=== PATIENT | male | born 1990 | race Caucasian/White ===

== ENCOUNTER 2021-08-20 13:10 | Inpatient (IN) ==
[2021-08-20 13:54] LABS: Basophils # (auto) 0.05 K/uL (0-0.2); Basophils % (auto) 0.5 %; Eosinophils # (auto) 0.13 K/uL (0-0.5); Eosinophils % (auto) 1.2 %; Hematocrit (blood only) 44.5 % (42-52); Hemoglobin 15.5 g/dL (14.0-18.0); Immature Granulocytes # (auto) 0.03 K/uL (0.00-0.02); Immature Granulocytes % (auto) 0.3 %; Lymphocytes # (auto) 2.05 K/uL (1.2-3.4); Lymphocytes % (auto) 19.3 %; Mean Corpuscular Hemoglobin 30.6 pg (25-34); Mean Corpuscular Hgb Conc 34.8 g/dL (32-36); Mean Corpuscular Volume 87.8 fL (80-100); Mean Platelet Volume 9.3 fL (7.4-10.4); Monocytes # (auto) 0.79 K/uL (0.11-0.59); Monocytes % (auto) 7.4 %; Neutrophils # (auto) 7.58 K/uL (1.4-6.5); Neutrophils % (auto) 71.3 %; Platelet Count 337 K/uL (130-400); RDW Coefficient of Variation 13.1 % (11.5-14.5); RDW Standard Deviation 41.9 fL (36.4-46.3); Red Blood Count 5.07 M/uL (4.7-6.1); White Blood Count 10.63 K/uL (4.8-10.8)
[2021-08-20 14:13] LABS: BUN Creatinine Ratio 10.8 (10-20); Calcium 9.2 mg/dl (8.5-10.1); Creatinine Clr Calc Pharmacy 131.8 ml/min; Est GFR (African American) 115.7 ml/min; Est GFR (Non-African American) 99.8 ml/min; Potassium 3.4 mmol/L (3.5-5.1)
[2021-08-20 14:23] LABS: Albumin Globulin Ratio 0.8 (0.9-2); Bilirubin,Total 0.5 mg/dl (0.2-1); Globulin 4.8 gm/dl (2.5-4.0); Thyroid Stimulating Hormone 1.04 uIu/ml (0.300-4.500); Total Protein 8.8 gm/dl (6.4-8.2)
[2021-08-20 14:25] LABS: Acetaminophen < 2 ug/ml (10-30); Salicylate 2.2 mg/dl (2.8-20)
[2021-08-20 14:39] LABS: Appearance Urine Clear (Clear); Bacteria Urine Automated Negative (Negative); Bilirubin Urine Negative (Negative); Blood Urine Negative (Negative); Color Urine Yellow; Epithelial Cell Urine Auto >30 /lpf (0-5); Glucose Urine UA Negative (Negative); Ketones Urine Negative (Negative); Leukocyte Esterase Urine Trace (Negative); Nitrite Urine Negative (Negative); Protein Urine 1+ (Negative); RBC Urine Automated 0-4 /hpf (0-4); Specific Gravity Urine 1.022 (1.000-1.030); Urobilinogen Urine Negative (Negative)
[2021-08-20 14:49] LABS: Amphetamines+Metham, Urine Pos (Neg); Barbiturates, Urine Neg (Neg); Benzodiazepine, Urine Neg (Neg); Cocaine, Urine Neg (Neg); MDMA (Ecstacy), Urine Pos (Neg); Methadone, Urine Neg (Neg); Opiate, Urine Neg (Neg); Phencyclidine, Urine Neg (Neg); Sperm Urine Present (None Prsent)
--- NOTE | 2021-08-20 16:16 | Emergency Department Note ---
Impression & Plan Mood disorder ED Provider Note INFORMANT: Patient and significant other ED PROVIDER(S): Joaquín Mohr MD CHIEF COMPLAINT: Mental health evaluation PLAN: Disposition: Admitted to three . Condition: Good Outpatient prescription management: none Referral: None MEDICAL DECISION MAKING: Patient presented to the emergency room because of thoughts of self-harm. He was requesting treatment. He was voluntary for inpatient treatment. His physical examination and medical screening did not reveal any significant findings. Patient was evaluated by the ER psychiatric business case analyst. Referrals were made. Patient was evaluated by [facility]. The patient was accepted for inpatient treatment. Triage Nursing notes reviewed and agree them. Vital Signs: reviewed and remarkable for no significant abnormalities Differential diagnosis: Mood disorder, infection, hypoglycemia, electrolyte abnormalities, cardiac sources, intracerebral event, toxicologic, trauma, neurologic, as well as other pathologies. Diagnostics interpreted by me: ECG: Deferred Cardiac Monitoring: Deferred Imaging studies: Deferred HPI: The patient is a 30year old male who presents to the Emergency Room with complaints of mental health evaluation. Patient notes he feels suicidal. This started last few months and is escalating over the last couple weeks. The patient also notes the following associated symptoms, feeling depressed. Patient states he previously had issues with alcohol but stopped drinking. He started to use meth. This caused him to have problems with his mood as well as the typical social problems. He ended up incarcerated several times. Patient states that he was clean but then had a relapse. This is causing him to be frustrated. He feels very depressed. He has thoughts of hurting himself. The patient has found no relieving factors. Current pain is rated as 0/10. Denies any recent illness. Pt denies LOC, headache, fevers, chills, diaphoresis, visual changes, neck pain, chest pain, breathing difficulties, nausea, vomiting, abdominal pain, back pain, melena, hematochezia, urinary symptoms, numbness, weakness, lymphadenopathy, rash, or other complaints. ROS: See above HPI for pertinent positives & negatives. A total of 10 systems reviewed and were otherwise negative. PAST MEDICAL HISTORY:See Below , methamphetamine abuse PAST SURGICAL HISTORY:See Below, FAMILY HISTORY:See Below SOCIAL HISTORY:See Below, unemployed HOME MEDICATIONS:See Below ALLERGIES:See Below VITALS:See Below PHYSICAL EXAMINATION: GENERAL: Awake, alert, depressed-appearing, in no distress HENT: Normocephalic, atraumatic except for an old appearing bruise under the left eye. Oropharynx unremarkable. EYES: Normal conjunctiva. Sclera non-icteric. NECK: Inspection normal. Non-tender. Supple. No nuchal rigidity. FROM. No masses. RESPIRATORY: Clear to auscultation. No wheezes. No rales. Normal respiratory effort. CARDIAC: Normal rate. Normal rhythm. No murmurs. No rubs. Extremities warm and well perfused. Pulses equal. No JVD. GI: Soft, non-distended. No tenderness to palpation. No rebound or guarding. No masses. RECTAL: Deferred. MUSCULOSKELETAL: Atraumatic. Chest examination reveals no tenderness. There is a old appearing bruise to the left upper pectoralis region. The back is symmetrical on inspection without obvious abnormality. There is no CVA tenderness to palpation. No joint edema. LOWER EXTREMITIES: Calves are equal size bilaterally and non-tender. No edema. No discoloration. NEURO: Normal sensorium. No sensory or motor deficits noted. SKIN: Multiple tattoos. No rash or jaundice noted. PSYCH: Depressed mood and flat affect. Suicidal ideation. No homicidal ideation. No hallucinations. Joaquín Mohr MD Past Med/Surg History Medical History Drug use Drug use Surgical History No pertinent past surgical history Social History Smoking Status: Current every day smoker Feels Safe at Home: Yes Allergies Allergies Allergy/AdvReac Type Severity Reaction Status Date / Time No Known Allergies Allergy Unverified 10/31/19 02:15 Home Meds Home Medications Medication Instructions Recorded Confirmed No Known Home Medications 10/31/19 08/20/21 Results & Data (ED) Vital Signs Vital Signs - 24 hr 08/20/21 13:17 08/20/21 15:53 Temperature 37.5 C 37.4 C Temperature Source Temporal Artery Scan Oral Pulse Rate 107 H Pulse Rate [Finger] 97 H Pulse Rhythm [Finger] Regular Pulse Strength [Finger] Normal Respiratory Rate 17 18 Respiratory Effort / Characteristics Non-Labored Respiratory Depth Normal Respiratory Pattern Regular Blood Pressure 163/95 H Blood Pressure [Right Arm] 147/89 H Blood Pressure Mean 117 Blood Pressure Mean [Right Arm] 108 Blood Pressure Position [Right Arm] Sitting Pulse Oximetry 99 100 Oxygen Delivery Method Room Air Room Air Sepsis Recent Fever Within 48 Hours No Sepsis New/Unexplained Change in Mental Status N/A Sepsis Action Taken by Nursing No Action Required Laboratory Data Result diagrams: 08/20/21 13:45 08/20/21 13:45 Lab Results 08/20/21 08/20/21 08/20/21 Range/Units 13:45 13:45 13:45 WBC 10.63 (4.8-10.8) K/uL RBC 5.07 (4.7-6.1) M/uL Hgb 15.5 (14.0-18.0) g/dL Hct 44.5 (42-52) % MCV 87.8 (80-100) fL MCH 30.6 (25-34) pg MCHC 34.8 (32-36) g/dL RDW Std Deviation 41.9 (36.4-46.3) fL RDW Coeff of [place] 13.1 (11.5-14.5) % Plt Count 337 (130-400) K/uL MPV 9.3 (7.4-10.4) fL Immature Gran % (Auto) 0.3 % Neut % (Auto) 71.3 % Lymph % (Auto) 19.3 % [place] % (Auto) 7.4 % Eos % (Auto) 1.2 % Baso % (Auto) 0.5 % Neut # (Auto) 7.58 H (1.4-6.5) K/uL Lymph # (Auto) 2.05 (1.2-3.4) K/uL [place] # (Auto) 0.79 H (0.11-0.59) K/uL Eos # (Auto) 0.13 (0-0.5) K/uL Baso # (Auto) 0.05 (0-0.2) K/uL Immature Gran # (Auto) 0.03 H (0.00-0.02) K/uL Sodium 141 (136-145) mmol/L Potassium 3.4 L (3.5-5.1) mmol/L Chloride 110 H (98-107) mmol/L Carbon Dioxide 23 (21-32) mmol/L Anion Gap 8.0 (3-11) BUN 11 (7-18) mg/dl Creatinine 1.00 (0.6-1.4) mg/dl Est Cr Clr Drug Dosing 131.8 ml/min Est GFR ( Amer) 115.7 ml/min Est GFR (Non-Af Amer) 99.8 ml/min BUN/Creatinine Ratio 10.8 (10-20) Glucose 118 H (70-99) mg/dl Calcium 9.2 (8.5-10.1) mg/dl Total Bilirubin 0.5 (0.2-1) mg/dl AST 13 L (15-37) U/L ALT 33 (12-78) U/L Alkaline Phosphatase 74 (45-117) U/L Total Protein 8.8 H (6.4-8.2) gm/dl Albumin 4.0 (3.4-5.0) gm/dl Globulin 4.8 H (2.5-4.0) gm/dl Albumin/Globulin Ratio 0.8 L (0.9-2) TSH 1.040 (0.300-4.500) uIu/ml Urine Color Urine Appearance (Clear) Urine pH (4.5-7.5) Ur Specific [place] (1.000-1.030) Urine Protein (Negative) Urine Glucose (UA) (Negative) Urine Ketones (Negative) Urine Blood (Negative) Urine Nitrite (Negative) Urine Bilirubin (Negative) Urine Urobilinogen (Negative) Ur Leukocyte Esterase (Negative) Urine WBC (Auto) (0-5) /hpf Urine RBC (Auto) (0-4) /hpf U Hyaline Cast (Auto) (0-5) /lpf U Epithel Cells (Auto) (0-5) /lpf Urine Bacteria (Auto) (Negative) Ur Renal Epithelial Cell Urine Sperm (None Prsent) Nasal Screen MRSA (PCR) (Negative) Salicylates 2.2 L (2.8-20) mg/dl Urine Opiates Screen (Neg) Ur Methadone, Qual (Neg) Acetaminophen < 2 L (10-30) ug/ml Urine Barbiturates (Neg) Ur Phencyclidine (PCP) (Neg) U Amphetamin/Meth Scrn (Neg) MDMA (Ecstasy) Screen (Neg) U Benzodiazepines Scrn (Neg) Ur Cocaine Metabolite (Neg) U Marijuana (THC) Screen (Neg) Ethyl Alcohol mg/dL (0-3) mg/dl SARS-CoV-2, RNA, NAAT (NEGATIVE) 08/20/21 08/20/21 08/20/21 Range/Units 13:45 14:14 14:14 WBC (4.8-10.8) K/uL RBC (4.7-6.1) M/uL Hgb (14.0-18.0) g/dL Hct (42-52) % MCV (80-100) fL MCH (25-34) pg MCHC (32-36) g/dL RDW Std Deviation (36.4-46.3) fL RDW Coeff of [place] (11.5-14.5) % Plt Count (130-400) K/uL MPV (7.4-10.4) fL Immature Gran % (Auto) % Neut % (Auto) % Lymph % (Auto) % [place] % (Auto) % Eos % (Auto) % Baso % (Auto) % Neut # (Auto) (1.4-6.5) K/uL Lymph # (Auto) (1.2-3.4) K/uL [place] # (Auto) (0.11-0.59) K/uL Eos # (Auto) (0-0.5) K/uL Baso # (Auto) (0-0.2) K/uL Immature Gran # (Auto) (0.00-0.02) K/uL Sodium (136-145) mmol/L Potassium (3.5-5.1) mmol/L Chloride (98-107) mmol/L Carbon Dioxide (21-32) mmol/L Anion Gap (3-11) BUN (7-18) mg/dl Creatinine (0.6-1.4) mg/dl Est Cr Clr Drug Dosing ml/min Est GFR ( Amer) ml/min Est GFR (Non-Af Amer) ml/min BUN/Creatinine Ratio (10-20) Glucose (70-99) mg/dl Calcium (8.5-10.1) mg/dl Total Bilirubin (0.2-1) mg/dl AST (15-37) U/L ALT (12-78) U/L Alkaline Phosphatase (45-117) U/L Total Protein (6.4-8.2) gm/dl Albumin (3.4-5.0) gm/dl Globulin (2.5-4.0) gm/dl Albumin/Globulin Ratio (0.9-2) TSH (0.300-4.500) uIu/ml Urine Color Urine Appearance (Clear) Urine pH (4.5-7.5) Ur Specific [place] (1.000-1.030) Urine Protein (Negative) Urine Glucose (UA) (Negative) Urine Ketones (Negative) Urine Blood (Negative) Urine Nitrite (Negative) Urine Bilirubin (Negative) Urine Urobilinogen (Negative) Ur Leukocyte Esterase (Negative) Urine WBC (Auto) (0-5) /hpf Urine RBC (Auto) (0-4) /hpf U Hyaline Cast (Auto) (0-5) /lpf U Epithel Cells (Auto) (0-5) /lpf Urine Bacteria (Auto) (Negative) Ur Renal Epithelial Cell Urine Sperm (None Prsent) Nasal Screen MRSA (PCR) (Negative) Salicylates (2.8-20) mg/dl Urine Opiates Screen Neg (Neg) Ur Methadone, Qual Neg (Neg) Acetaminophen (10-30) ug/ml Urine Barbiturates Neg (Neg) Ur Phencyclidine (PCP) Neg (Neg) U Amphetamin/Meth Scrn Pos H (Neg) MDMA (Ecstasy) Screen Pos H (Neg) U Benzodiazepines Scrn Neg (Neg) Ur Cocaine Metabolite Neg (Neg) U Marijuana (THC) Screen Neg (Neg) Ethyl Alcohol mg/dL < 3.0 (0-3) mg/dl SARS-CoV-2, RNA, NAAT NEGATIVE (NEGATIVE) 08/20/21 08/20/21 Range/Units 14:14 16:10 WBC (4.8-10.8) K/uL RBC (4.7-6.1) M/uL Hgb (14.0-18.0) g/dL Hct (42-52) % MCV (80-100) fL MCH (25-34) pg MCHC (32-36) g/dL RDW Std Deviation (36.4-46.3) fL RDW Coeff of [place] (11.5-14.5) % Plt Count (130-400) K/uL MPV (7.4-10.4) fL Immature Gran % (Auto) % Neut % (Auto) % Lymph % (Auto) % [place] % (Auto) % Eos % (Auto) % Baso % (Auto) % Neut # (Auto) (1.4-6.5) K/uL Lymph # (Auto) (1.2-3.4) K/uL [place] # (Auto) (0.11-0.59) K/uL Eos # (Auto) (0-0.5) K/uL Baso # (Auto) (0-0.2) K/uL Immature Gran # (Auto) (0.00-0.02) K/uL Sodium (136-145) mmol/L Potassium (3.5-5.1) mmol/L Chloride (98-107) mmol/L Carbon Dioxide (21-32) mmol/L Anion Gap (3-11) BUN (7-18) mg/dl Creatinine (0.6-1.4) mg/dl Est Cr Clr Drug Dosing ml/min Est GFR ( Amer) ml/min Est GFR (Non-Af Amer) ml/min BUN/Creatinine Ratio (10-20) Glucose (70-99) mg/dl Calcium (8.5-10.1) mg/dl Total Bilirubin (0.2-1) mg/dl AST (15-37) U/L ALT (12-78) U/L Alkaline Phosphatase (45-117) U/L Total Protein (6.4-8.2) gm/dl Albumin (3.4-5.0) gm/dl Globulin (2.5-4.0) gm/dl Albumin/Globulin Ratio (0.9-2) TSH (0.300-4.500) uIu/ml Urine Color Yellow Urine Appearance Clear (Clear) Urine pH 5.0 (4.5-7.5) Ur Specific [place] 1.022 (1.000-1.030) Urine Protein 1+ H (Negative) Urine Glucose (UA) Negative (Negative) Urine Ketones Negative (Negative) Urine Blood Negative (Negative) Urine Nitrite Negative (Negative) Urine Bilirubin Negative (Negative) Urine Urobilinogen Negative (Negative) Ur Leukocyte Esterase Trace H (Negative) Urine WBC (Auto) 5-10 H (0-5) /hpf Urine RBC (Auto) 0-4 (0-4) /hpf U Hyaline Cast (Auto) 5-10 H (0-5) /lpf U Epithel Cells (Auto) >30 H (0-5) /lpf Urine Bacteria (Auto) Negative (Negative) Ur Renal Epithelial Cell Not Reportable Urine Sperm Present A (None Prsent) Nasal Screen MRSA (PCR) Negative (Negative) Salicylates (2.8-20) mg/dl Urine Opiates Screen (Neg) Ur Methadone, Qual (Neg) Acetaminophen (10-30) ug/ml Urine Barbiturates (Neg) Ur Phencyclidine (PCP) (Neg) U Amphetamin/Meth Scrn (Neg) MDMA (Ecstasy) Screen (Neg) U Benzodiazepines Scrn (Neg) Ur Cocaine Metabolite (Neg) U Marijuana (THC) Screen (Neg) Ethyl Alcohol mg/dL (0-3) mg/dl SARS-CoV-2, RNA, NAAT (NEGATIVE) Administered Medications Discontinued Medications Nicotine (Nicotine 14 Mg/24 Hr Patch) 14 mg TD NOW STA Stop: 08/20/21 16:50 Last Admin: 08/20/21 17:16 Dose: 14 mg Documented by: [id number] Discharge Plan Visit Data Chief Complaint: Mental Health Evaluation Stated Complaint: SUICIDAL THOUGHTS/TALKING OF KILLING HIMSELF ED Provider: Joaquín Mohr Discharge Problem: Mood disorder Patient Disposition: Admitted As Inpatient Discharge Instructions Interventions: ED Discharge Assessment Last Done: 08/20/21 18:31 Forms Stand Alone Forms: [facility] [employer], Suicide Prevention Resources Prescriptions Prescriptions: No Action No Known Home Medications RF: 0 Referrals Referrals: PCP,NO [Primary Care Provider] -
[2021-08-20] MEDS ORDERED: NICOTINE 14 MG/24 HR PATCH TD STA (16:49)
[2021-08-20] MEDS ORDERED: hydrOXYzine HCl 25 MG TAB PO PRN ×2 (18:14)
[2021-08-20] MEDS ORDERED: ACETAMINOPHEN 325 MG TAB PO PRN (18:14)
[2021-08-20] MEDS ORDERED: SODIUM CHLORIDE 0.65% NA SOLN 45 ML (OCEAN) PRN (18:14)
[2021-08-20] MEDS ORDERED: BISMUTH SUBSALICYLATE LIQD 236 ML PO PRN (18:14)
[2021-08-20] MEDS ORDERED: NICOTINE POLACRILEX 2 MG GUM MT PRN (18:14)
[2021-08-20] MEDS ORDERED: ALUMINUM/MAGNESIUM SUSP 30 ML UDC PO PRN (18:14)
[2021-08-20] MEDS ORDERED: MAGNESIUM HYDROXIDE SUSP 30 ML UDC PO PRN (18:14)
[2021-08-20] MEDS ORDERED: FLUARIX QUADRIVALENT 0.5 ML SYR IM ONE (20:33)
[2021-08-21] MEDS: NICOTINE 14 MG/24 HR PATCH TD SCH (09:11)
[2021-08-21] MEDS ORDERED: QUEtiapine FUMARATE 25 MG TABLET PO PRN (11:59)
--- NOTE | 2021-08-21 12:04 | History & Physical ---
Date of Service August 21, 2021 Impression / Recommendations Impression The patient is a 30 year old man with a history of anxiety, depression and polysubstance use who was admitted for worsening depression and SI in the context of multiple psychosocial stressors including recent incarceration, homelessness, relationship conflict, financial strain and relapse of methamphetamine use. Diagnostically consistent with APRIL, social anxiety disorder and unspecified depression likely MDD versus substance-induced depression as well as meeting criteria for methamphetamine use disorder and history of alcohol use disorder in sustained remission. The patient is deemed unstable and requires psychiatric hospitalization for diagnostic clarification, safety and stabilization, medication management and development of further coping skills. Discussed treatment options for mood symptoms as well as his substance use at length. Recommended residential substance use treatment following mood stabilization but is not interested in this level of care at this time. He is willing to participate in a substance use IOP after discharge for his polysubstance use. This will be the biggest modifiable risk factor in reducing his acute and chronic risk of harm to self. Additionally discussed medication options at length including risks, benefits, alteratives. He consented to starting lexapro for anxiety and depression as well as mirtazapine for insomnia. He also consented to use of propranolol BID prn for anxiety and social/performance stress understands risks including but not limited to low BP, dizziness, potential for impacting mood. Also will provide seroquel if necessary for acute agitation if he begins to self-harm via punching counseled on risks including metabolic, TD and goal to avoid use unless absolutely necessary. (1) APRIL (generalized anxiety disorder): (2) Social anxiety disorder: (3) Major depressive disorder, recurrent, unspecified: (4) Methamphetamine use disorder, moderate: (5) Alcohol use disorder, moderate, in sustained remission: 08/21/21: The patient was admitted to the [facility] ([facility] mental health unit) on q15 min checks (behavioral with suicide precautions) for safety. The patient will participate in group, recreational, and milieu therapies and will be offered additional individual and family sessions as clinically appropriate. -Start lexapro 10 mg qd for anxiety and depression -Start mirtazapine 15 mg qhs for depression and insomnia -Start propranolol 10mg BID prn for anxiety -Seroquel 50 mg BID prn po in case of acute agitation Inventory Assets Strengths: motivated for substance use treatment, suportive partner Needs: stable housing, substance use treatment like IOP Risk Factors Assessment substance use remains most significant and modifiable risk factor especially since negative consequences have lead to incarceration and parole violations which are additional risk factors Male: Yes : Yes Do You Have Access To A Gun?: No Health Problems: No Mental Health Diagnoses: Yes Substance Use Disorders: Yes Previous Attempt: Yes Previous Psychiatric Hospitalization: No Hopelessness: No Protective Factors Assessment Employed: No Stable Relationships: Yes Supportive Family: Yes Psychiatric History Identifying Data NARGIS CACERES is a 30-year-old man who is currently homeless, has a history of anxiety, depression and polysubstance use disorder, and was admitted on 08/20/21 18:14 on a 201 voluntary commitment for worsening depression and SI. Chief Complaint "I'm been beating myself up mentally because I had a slip up". History of Present Illness Adrian is a 30 yo man with a history of anxiety, depression and polysubstance use disorder who is currently couch surfing and recently incarcerated due to a parole violation who presents for worsening mood symptoms and SI in the context of multiple psychosocial stressors. Adrian describes low mood with significant anxiety, difficulty sleeping, low self-esteem, worthlessness and decreased energy with intermittent SI over the last few weeks. More recently he's had thoughts of SI with potential plan of overdosing on opioids. He cites multiple stressors, many stemming from recent relapse of methamphetamine use including recently being incarcerated for a parole violation for using methamphetamine in May, homelessness, financial stressors, relationship conflict with his girlfriend, strained relationship with his family, stress from the holidays. He describes a history of substance use, initially with escalating binge use of alcohol (up to 1/5 hard liquor and 12 pack of beer per day) following the of his mother ten years ago. His alcohol use escalated over time and resulted in multiple legal, familial and financial consequences including DUI charges. For the last 3 years he has been in sustained remission from alcohol and no longer has cravings for use. However, he states he substituted "one substance for another" and for the last three years has been using methamphetamine via snorting or smoking as well as intermittent use of suboxone and marijuana. No history of IVDU. He has done residential substance use treatment in the past including most recently May 2021 and he abstained from any use until the day before when he used methamphetamine and suboxone and then three days ago he used methamphetamine again. He is motivated to avoid any further substance use and denies any current cravings. Notes that anxiety is often a major driving factor behind his substance use. Psychiatric ROS notable for past good experience with celexa for anxiety and mood while in [facility], no hx monserrat, no hx psychosis though has experienced AH at times in the past in periods of high anxiety thinking someone is whispering negative comments about him, hx panic attacks in the past (rare), no hx trauma, no hx HI, no hx violence. Past Psychiatric History Previous Psych History: no official diagnoses, was seen by psychiatric provider while in [facility] in the past and prescribed celexa, seroquel and buspirone with some benefit Current Psychiatric Diagnosis: None Outpatient Services: none currently Previous Psych Admissions: none Do You Have Access To A Gun?: No History of Previous Suicide Attempt: Yes (overdose of dentanyl in 2020 that he recognized could lead to possible deat) Past Medication Trials: celexa-found helpful for anxiety, seroquel, buspar, trazodone Additional Notes: hx self-harming via punching self in face or slamming body into yun and burning skin Past Head Trauma/Neuro History History of Concussion/Seizure: No Allergies Allergy/AdvReac Type Severity Reaction Status Date / Time No Known Allergies Allergy Unverified 10/31/19 02:15 Home Medications Medication Instructions Recorded Confirmed Type No Known Home Medications 10/31/19 08/20/21 History Family History Family History of: Depression, Anxiety and Alcoholism/Drug Abuse Alcohol History Hx of Alcohol Use Over the Past 12 Months: No AUDIT Total Score: 0 see HPI Smoking Use Have You Smoked or Used Tobacco Products in the Last 30 Days: Yes tobacco type: cigarettes Smoking Status: Current every day smoker Smoking packs per day: 1 Substance History Hx of Prescription Med Misuse Over the Past 12 Months: No Hx of Over the Counter Med Misuse Over the Past 12 Months: No Hx of Inhalent Misuse Over the Past 12 Months: No Hx of Organic Substance Use Over the Past 12 Months: Yes (Marijuana, last use 07/16) Hx of Illegal Substances/Street Drug Use Over Past 12 Months: Yes (Meth, last use 08/13/21) Problems as a Result of Past Substance Use: Arrested see HPI Personal History Living Arrangements: Homeless Childhood: family in [place], not currently in contact with them Highest Grade Completed: High School Graduate Employment Status: Unemployed Number Of Children: 1 son-age 2, paternal GF has full custody Beliefs That Will Affect Care: None Current Legal Problems: Yes Hx Legal Problems: Yes Hx Traumatic Life Events: No Patient History Medical History (Updated 08/21/21 @ 12:59 by Brooke Gallegos MD) Alcohol use disorder, moderate, in sustained remission Drug use Drug use APRIL (generalized anxiety disorder) Major depressive disorder, recurrent, unspecified Methamphetamine use disorder, moderate Social anxiety disorder Surgical History No pertinent past surgical history Social History Smoking Status: Current every day smoker Preferred Language: Citizen Of [place] Speech Scientist Required: No Beliefs That Will Affect Care: None Feels Safe at Home: Yes Assistive Devices: None Review of Systems Review of Systems: All systems reviewed & are unremarkable except as noted in HPI & below (bruise under left eye from self-harming via punching himself in the face a few days ago ) Physical Exam Psychiatric: Orientation: alert and oriented x 3 Apperance: appropriately dressed and appropriately groomed Eye Contact: good eye contact Motor Behavior: no abnormal motor movements Speech: normal rate/rhythm/volume of speech Affect: + depressed affect Mood: + depressed mood Thought Process: goal directed thought process Thought Content: reality based without delusions Suicidal Thoughts: denies suicidal thoughts Homicidal Thoughts: denies homicidal thoughts Hallucinations: no auditory hallucinations and no visual hallucinations Cognition: attention grossly intact and language grossly intact Estimated Intelligence: consistent with education level Insight: + fair insight Judgement: + fair judgement Vital Signs (Past 24 Hours): Last Vital Signs Temp 36.7 C 08/21/21 06:00 Pulse 96 H 08/21/21 06:31 Resp 16 08/21/21 06:00 BP 121/82 08/21/21 06:31 Pulse Ox 100 08/20/21 15:53 Exam Statement: A physical exam was performed in the ED by Dr. Mohr for the purposes of medical clearance. I accept that physical as correct and adequate for the purposes of the inpatient physical exam. Results & Data ([facility]) Laboratory Results Laboratory Results - last 24 hr 08/20/21 08/20/21 08/20/21 13:45 13:45 13:45 WBC 10.63 RBC 5.07 Hgb 15.5 Hct 44.5 MCV 87.8 MCH 30.6 MCHC 34.8 RDW Std Deviation 41.9 RDW Coeff of [place] 13.1 Plt Count 337 MPV 9.3 Immature Gran % (Auto) 0.3 Neut % (Auto) 71.3 Lymph % (Auto) 19.3 Garrett % (Auto) 7.4 Eos % (Auto) 1.2 Baso % (Auto) 0.5 Neut # (Auto) 7.58 H Lymph # (Auto) 2.05 Garrett # (Auto) 0.79 H Eos # (Auto) 0.13 Baso # (Auto) 0.05 Immature Gran # (Auto) 0.03 H Sodium 141 Potassium 3.4 L Chloride 110 H Carbon Dioxide 23 Anion Gap 8.0 BUN 11 Creatinine 1.00 Est Cr Clr Drug Dosing 131.8 Est GFR ( Amer) 115.7 Est GFR (Non-Af Amer) 99.8 BUN/Creatinine Ratio 10.8 Glucose 118 H Calcium 9.2 Total Bilirubin 0.5 AST 13 L ALT 33 Alkaline Phosphatase 74 Total Protein 8.8 H Albumin 4.0 Globulin 4.8 H Albumin/Globulin Ratio 0.8 L TSH 1.040 Urine Color Urine Appearance Urine pH Ur Specific [place] Urine Protein Urine Glucose (UA) Urine Ketones Urine Blood Urine Nitrite Urine Bilirubin Urine Urobilinogen Ur Leukocyte Esterase Urine WBC (Auto) Urine RBC (Auto) U Hyaline Cast (Auto) U Epithel Cells (Auto) Urine Bacteria (Auto) Ur Renal Epithelial Cell Urine Sperm Nasal Screen MRSA (PCR) Salicylates 2.2 L Urine Opiates Screen Ur Methadone, Qual Acetaminophen < 2 L Urine Barbiturates Ur Phencyclidine (PCP) U Amphetamines Confirm U Amphetamin/Meth Scrn U Methamphetamin Confrm Urine MDEA MDMA (Ecstasy) Screen MDMA Urine MDMA U Benzodiazepines Scrn Ur Cocaine Metabolite U Marijuana (THC) Screen Drug Screen Comment Ethyl Alcohol mg/dL SARS-CoV-2, RNA, NAAT 08/20/21 08/20/21 08/20/21 13:45 14:14 14:14 WBC RBC Hgb Hct MCV MCH MCHC RDW Std Deviation RDW Coeff of [place] Plt Count MPV Immature Gran % (Auto) Neut % (Auto) Lymph % (Auto) Garrett % (Auto) Eos % (Auto) Baso % (Auto) Neut # (Auto) Lymph # (Auto) Garrett # (Auto) Eos # (Auto) Baso # (Auto) Immature Gran # (Auto) Sodium Potassium Chloride Carbon Dioxide Anion Gap BUN Creatinine Est Cr Clr Drug Dosing Est GFR ( Amer) Est GFR (Non-Af Amer) BUN/Creatinine Ratio Glucose Calcium Total Bilirubin AST ALT Alkaline Phosphatase Total Protein Albumin Globulin Albumin/Globulin Ratio TSH Urine Color Urine Appearance Urine pH Ur Specific [place] Urine Protein Urine Glucose (UA) Urine Ketones Urine Blood Urine Nitrite Urine Bilirubin Urine Urobilinogen Ur Leukocyte Esterase Urine WBC (Auto) Urine RBC (Auto) U Hyaline Cast (Auto) U Epithel Cells (Auto) Urine Bacteria (Auto) Ur Renal Epithelial Cell Urine Sperm Nasal Screen MRSA (PCR) Salicylates Urine Opiates Screen Neg Ur Methadone, Qual Neg Acetaminophen Urine Barbiturates Neg Ur Phencyclidine (PCP) Neg U Amphetamines Confirm U Amphetamin/Meth Scrn Pos H U Methamphetamin Confrm Urine MDEA MDMA (Ecstasy) Screen Pos H MDMA Urine MDMA U Benzodiazepines Scrn Neg Ur Cocaine Metabolite Neg U Marijuana (THC) Screen Neg Drug Screen Comment Ethyl Alcohol mg/dL < 3.0 SARS-CoV-2, RNA, NAAT NEGATIVE 08/20/21 08/20/21 08/20/21 14:14 14:14 16:10 WBC RBC Hgb Hct MCV MCH MCHC RDW Std Deviation RDW Coeff of [place] Plt Count MPV Immature Gran % (Auto) Neut % (Auto) Lymph % (Auto) Garrett % (Auto) Eos % (Auto) Baso % (Auto) Neut # (Auto) Lymph # (Auto) Garrett # (Auto) Eos # (Auto) Baso # (Auto) Immature Gran # (Auto) Sodium Potassium Chloride Carbon Dioxide Anion Gap BUN Creatinine Est Cr Clr Drug Dosing Est GFR ( Amer) Est GFR (Non-Af Amer) BUN/Creatinine Ratio Glucose Calcium Total Bilirubin AST ALT Alkaline Phosphatase Total Protein Albumin Globulin Albumin/Globulin Ratio TSH Urine Color Yellow Urine Appearance Clear Urine pH 5.0 Ur Specific [place] 1.022 Urine Protein 1+ H Urine Glucose (UA) Negative Urine Ketones Negative Urine Blood Negative Urine Nitrite Negative Urine Bilirubin Negative Urine Urobilinogen Negative Ur Leukocyte Esterase Trace H Urine WBC (Auto) 5-10 H Urine RBC (Auto) 0-4 U Hyaline Cast (Auto) 5-10 H U Epithel Cells (Auto) >30 H Urine Bacteria (Auto) Negative Ur Renal Epithelial Cell Not Reportable Urine Sperm Present A Nasal Screen MRSA (PCR) Negative Salicylates Urine Opiates Screen Ur Methadone, Qual Acetaminophen Urine Barbiturates Ur Phencyclidine (PCP) U Amphetamines Confirm Pending U Amphetamin/Meth Scrn U Methamphetamin Confrm Pending Urine MDEA Pending MDMA (Ecstasy) Screen MDMA Pending Urine MDMA Pending U Benzodiazepines Scrn Ur Cocaine Metabolite U Marijuana (THC) Screen Drug Screen Comment Pending Ethyl Alcohol mg/dL SARS-CoV-2, RNA, NAAT Current Inpatient Medications Current Inpatient Medications: Current Inpatient Medications Acetaminophen (Acetaminophen 325 Mg Tab) 650 mg PO Q4H PRN PRN Reason: Headache or Minor Fever Stop: 09/19/21 18:13 Al Hydrox/Mg Hydrox/Simethicone (Aluminum/Magnesium Susp 30 Ml Udc) 30 ml PO Q4H PRN PRN Reason: GI Upset Stop: 09/19/21 18:13 Bismuth Subsalicylate (Bismuth Subsalicylate Liqd 236 Ml) 15 ml PO PRN PRN PRN Reason: Loose Stool Stop: 09/19/21 18:13 Escitalopram Oxalate (Escitalopram Oxalate 10 Mg Tab) 10 mg PO QAM [facility] Stop: 09/20/21 11:59 Hydroxyzine HCl (Hydroxyzine Hcl 25 Mg Tab) 50 mg PO HSZ PRN PRN Reason: Insomnia Stop: 09/19/21 18:13 Hydroxyzine HCl (Hydroxyzine Hcl 25 Mg Tab) 25 mg PO Q4H PRN PRN Reason: Anxiety Stop: 09/19/21 18:13 Last Admin: 08/21/21 10:30 Dose: 25 mg Documented by: Magnesium Hydroxide (Magnesium Hydroxide Susp 30 Ml Udc) 30 ml PO DAILY PRN PRN Reason: Constipation Stop: 09/19/21 18:13 Mirtazapine (Mirtazapine Tab 15 Mg Tab) 15 mg PO HS [facility] Stop: 09/20/21 21:59 Miscellaneous (Remove Nicoderm Patch) 1 ea N/A DAILY@0859 [facility] Stop: 09/20/21 08:58 Last Admin: 08/21/21 09:15 Dose: 1 ea Documented by: Miscellaneous (Remove Nicoderm Patch) 1 ea N/A DAILY@0859 [facility] Stop: 09/20/21 08:58 Last Admin: 08/21/21 09:15 Dose: Not Given Documented by: Nicotine (Nicotine 14 Mg/24 Hr Patch) 14 mg TD QAM [facility] Stop: 09/20/21 08:59 Last Admin: 08/21/21 09:11 Dose: 14 mg Documented by: Nicotine Polacrilex (Nicotine Polacrilex 2 Mg Gum) 1 piece MT PRN PRN PRN Reason: Nicotine Withdrawal Stop: 09/19/21 18:13 Last Admin: 08/21/21 10:31 Dose: 1 piece Documented by: Propranolol HCl (Propranolol Hcl 10 Mg Tab) 10 mg PO BID PRN PRN Reason: Anxiety/Agitation Stop: 09/20/21 11:59 Quetiapine Fumarate (Quetiapine Fumarate 25 Mg Tablet) 50 mg PO BID PRN PRN Reason: Agitation Stop: 09/20/21 11:59 Sodium Chloride (Sodium Chloride 0.65% Na Soln 45 Ml ([place])) 1 - 2 sprays NA PRN PRN PRN Reason: Nasal Dryness/Congestion Stop: 09/19/21 18:13
[2021-08-21] MEDS: ESCITALOPRAM OXALATE 10 MG TAB PO SCH (13:00)
[2021-08-21] MEDS: MIRTAZAPINE TAB 15 MG TAB PO SCH (21:31)
[2021-08-22] MEDS: NICOTINE 14 MG/24 HR PATCH TD SCH (09:16)
[2021-08-22] MEDS: ESCITALOPRAM OXALATE 10 MG TAB PO SCH (09:17)
--- NOTE | 2021-08-22 15:09 | Psychiatric Progress Note ---
Date of Service August 22, 2021 Impression / Recommendations Impression The patient is a 30 year old man with a history of anxiety, depression and polysubstance use who was admitted for worsening depression and SI in the context of multiple psychosocial stressors including recent incarceration, homelessness, relationship conflict, financial strain and relapse of methamphetamine use. Diagnostically consistent with APRIL, social anxiety disorder and unspecified depression likely MDD versus substance-induced depression as well as meeting criteria for methamphetamine use disorder and history of alcohol use disorder in sustained remission. The patient is deemed unstable and requires psychiatric hospitalization for diagnostic clarification, safety and stabilization, medication management and development of further coping skills. 08/22/21: some improvement in sleep with mirtazapine, TINOCO today which could be side effect from lexapro, will continue to monitor and offer supportive treatment. Motivational interviewing regarding substance use and he is in action stage, willing to do substance use IOP after discharge. (1) APRIL (generalized anxiety disorder): (2) Social anxiety disorder: (3) Major depressive disorder, recurrent, unspecified: (4) Methamphetamine use disorder, moderate: (5) Alcohol use disorder, moderate, in sustained remission: 08/22/21: Continue medications, he didn't need to use any prn's yesterday or today. Motivational interviewing regarding substance use and he's agreeable to doing an IOP. 08/21/21: The patient was admitted to the [facility] ([facility] mental health unit) on q15 min checks (behavioral with suicide precautions) for safety. The patient will participate in group, recreational, and milieu therapies and will be offered additional individual and family sessions as clinically appropriate. -Start lexapro 10 mg qd for anxiety and depression -Start mirtazapine 15 mg qhs for depression and insomnia -Start propranolol 10mg BID prn for anxiety -Seroquel 50 mg BID prn po in case of acute agitation Inventory Assets Strengths: motivated for substance use treatment, suportive partner Needs: stable housing, substance use treatment like IOP Risk Factors Assessment Male: Yes : Yes Do You Have Access To A Gun?: No Health Problems: No Mental Health Diagnoses: Yes Substance Use Disorders: Yes Previous Attempt: Yes Previous Psychiatric Hospitalization: No Hopelessness: No Protective Factors Assessment Employed: No Stable Relationships: Yes Supportive Family: Yes Interval History Identifying Information NARGIS CACERES is a 30-year-old man who is currently homeless, has a history of anxiety, depression and polysubstance use disorder, and was admitted on 08/20/21 18:14 on a 201 voluntary commitment for worsening depression and SI. Chief Complaint "I have a bad headache today". Review of Systems Sleep Information Total Hours of Sleep: 5.75 Meal Information Percent Meal Consumed - Breakfast: 100 Percent Meal Consumed - Lunch: 100 Percent Meal Consumed - Dinner: 100 Subjective Subjective Patient was seen & assessed and interval progress reviewed with treatment team nursing and social work. He slept well last night with the mirtazapine without any side effects. His mood remains depressed. Developed a TINOCO this morning which he gets quite often. Discussed that this could be a side effect from lexapro but resolves in majority of people after 2 weeks and that we'll continue to monitor and offer supportive treatment with pain relievers. No other side effects. Discussed goal of IOP for substance use treatment which he remains agreeable to doing. Physical Exam Psychiatric Orientation: alert and oriented x 3 Apperance: appropriately dressed and appropriately groomed Eye Contact: good eye contact Motor Behavior: no abnormal motor movements Speech: normal rate/rhythm/volume of speech Affect: + depressed affect Mood: + depressed mood Thought Process: goal directed thought process Thought Content: reality based without delusions Suicidal Thoughts: denies suicidal thoughts Homicidal Thoughts: denies homicidal thoughts Hallucinations: no auditory hallucinations and no visual hallucinations Cognition: attention grossly intact and language grossly intact Estimated Intelligence: consistent with education level Insight: + fair insight Judgement: + fair judgement Vital Signs (Past 24 Hours) Last Vital Signs Temp 36.4 C L 08/22/21 06:00 Pulse 68 08/22/21 06:46 Resp 14 08/22/21 06:00 BP 122/84 08/22/21 06:46 Pulse Ox 100 08/20/21 15:53 Results & Data (U) Current Inpatient Medications Current Inpatient Medications: Current Inpatient Medications Acetaminophen (Acetaminophen 325 Mg Tab) 650 mg PO Q4H PRN PRN Reason: Headache or Minor Fever Stop: 09/19/21 18:13 Last Admin: 08/22/21 09:17 Dose: 650 mg Documented by: Al Hydrox/Mg Hydrox/Simethicone (Aluminum/Magnesium Susp 30 Ml Udc) 30 ml PO Q4H PRN PRN Reason: GI Upset Stop: 09/19/21 18:13 Bismuth Subsalicylate (Bismuth Subsalicylate Liqd 236 Ml) 15 ml PO PRN PRN PRN Reason: Loose Stool Stop: 09/19/21 18:13 Escitalopram Oxalate (Escitalopram Oxalate 10 Mg Tab) 10 mg PO QAM [facility] Stop: 09/20/21 11:59 Last Admin: 08/22/21 09:17 Dose: 10 mg Documented by: Hydroxyzine HCl (Hydroxyzine Hcl 25 Mg Tab) 50 mg PO HSZ PRN PRN Reason: Insomnia Stop: 09/19/21 18:13 Hydroxyzine HCl (Hydroxyzine Hcl 25 Mg Tab) 25 mg PO Q4H PRN PRN Reason: Anxiety Stop: 09/19/21 18:13 Last Admin: 08/21/21 10:30 Dose: 25 mg Documented by: Magnesium Hydroxide (Magnesium Hydroxide Susp 30 Ml Udc) 30 ml PO DAILY PRN PRN Reason: Constipation Stop: 09/19/21 18:13 Mirtazapine (Mirtazapine Tab 15 Mg Tab) 15 mg PO HS [facility] Stop: 09/20/21 21:59 Last Admin: 08/21/21 21:31 Dose: 15 mg Documented by: Miscellaneous (Remove Nicoderm Patch) 1 ea N/A DAILY@0859 [facility] Stop: 09/20/21 08:58 Last Admin: 08/22/21 09:16 Dose: 1 ea Documented by: Miscellaneous (Remove Nicoderm Patch) 1 ea N/A DAILY@0859 [facility] Stop: 09/20/21 08:58 Last Admin: 08/22/21 09:16 Dose: Not Given Documented by: Nicotine (Nicotine 14 Mg/24 Hr Patch) 14 mg TD [facility] Stop: 09/20/21 08:59 Last Admin: 08/22/21 09:16 Dose: 14 mg Documented by: Nicotine Polacrilex (Nicotine Polacrilex 2 Mg Gum) 1 piece MT PRN PRN PRN Reason: Nicotine Withdrawal Stop: 09/19/21 18:13 Last Admin: 08/21/21 10:31 Dose: 1 piece Documented by: Propranolol HCl (Propranolol Hcl 10 Mg Tab) 10 mg PO BID PRN PRN Reason: Anxiety/Agitation Stop: 09/20/21 11:59 Quetiapine Fumarate (Quetiapine Fumarate 25 Mg Tablet) 50 mg PO BID PRN PRN Reason: Agitation Stop: 09/20/21 11:59 Sodium Chloride (Sodium Chloride 0.65% Na Soln 45 Ml ([place])) 1 - 2 sprays NA PRN PRN PRN Reason: Nasal Dryness/Congestion Stop: 09/19/21 18:13 Mental Health & Subst Abuse Tx Psychiatrist Name of Psychiatrist: Gigi Psychiatrist's Time of Appointment with Psychiatrist: Will be referred after initial intake Psychiatric Appointment Comment: [address] [place], [place] Therapist Name of Therapist: Gigi Reed Therapist's Date of Therapist Appointment: 08/26/21 Time of Therapist Appointment: 4:30pm Therapy Appointment Comment: [address] [place], [place] Manuscript Editor Name of Manuscript Editor: [facility] Jana Mckenna Phone Number for Manuscript Editor: [phone] Post Discharge Appointments Primary Care Physician Name Of Family Doctor: None Contact Information Discharge Discharge Address: [address] [address]
[2021-08-22] MEDS: MIRTAZAPINE TAB 15 MG TAB PO SCH (21:38)
[2021-08-22] MEDS: PROPRANOLOL HCL 10 MG TAB PO PRN (21:38)
[2021-08-23] MEDS: ESCITALOPRAM OXALATE 10 MG TAB PO SCH (09:32)
[2021-08-23] MEDS: NICOTINE 14 MG/24 HR PATCH TD SCH (09:32)
--- NOTE | 2021-08-23 15:19 | Psychiatric Progress Note ---
Date of Service August 23, 2021 Impression / Recommendations Impression The patient is a 30 year old man with a history of anxiety, depression and polysubstance use who was admitted for worsening depression and SI in the context of multiple psychosocial stressors including recent incarceration, homelessness, relationship conflict, financial strain and relapse of methamphetamine use. Diagnostically consistent with APRIL, social anxiety disorder and unspecified depression likely MDD versus substance-induced depression as well as meeting criteria for methamphetamine use disorder and history of alcohol use disorder in sustained remission. The patient is deemed unstable and requires psychiatric hospitalization for diagnostic clarification, safety and stabilization, medication management and development of further coping skills. 08/23/21: some improvement in sleep with mirtazapine, tolerating lexapro well without any TINOCO today. Motivational interviewing regarding substance use and he is in action stage, remains interested in IOP after discharge. Found the propranolol helpful for episode with high anxiety yesterday. (1) APRIL (generalized anxiety disorder): (2) Social anxiety disorder: (3) Major depressive disorder, recurrent, unspecified: (4) Methamphetamine use disorder, moderate: (5) Alcohol use disorder, moderate, in sustained remission: 08/23/21: Continue lexapro 10mg qd, mirtazapine 15 mg qhs for insomnia, propranolol 10 mg BID for anxiety, seroquel 50 mg BID prn for agitation/anxiety. 08/22/21: Continue medications, he didn't need to use any prn's yesterday or today. Motivational interviewing regarding substance use and he's agreeable to doing an IOP. 08/21/21: The patient was admitted to the [facility] ([facility] [place] [facility]) on q15 min checks (behavioral with suicide precautions) for safety. The patient will participate in group, recreational, and milieu therapies and will be offered additional individual and family sessions as clinically appropriate. -Start lexapro 10 mg qd for anxiety and depression -Start mirtazapine 15 mg qhs for depression and insomnia -Start propranolol 10mg BID prn for anxiety -Seroquel 50 mg BID prn po in case of acute agitation Inventory Assets Strengths: motivated for substance use treatment, suportive partner Needs: stable housing, substance use treatment like IOP Risk Factors Assessment Male: Yes : Yes Do You Have Access To A Gun?: No Health Problems: No Mental Health Diagnoses: Yes Substance Use Disorders: Yes Previous Attempt: Yes Previous Psychiatric Hospitalization: No Hopelessness: No Protective Factors Assessment Employed: No Stable Relationships: Yes Supportive Family: Yes Interval History Identifying Information NARGIS CACERES is a 30-year-old man who is currently homeless, has a history of anxiety, depression and polysubstance use disorder, and was admitted on 08/20/21 18:14 on a 201 voluntary commitment for worsening depression and SI. Chief Complaint "I'm alright, I haven't had a headache today". Review of Systems Sleep Information Total Hours of Sleep: 6 Sleep Comments: pt on q-15 minute checks Meal Information Percent Meal Consumed - Breakfast: 100 Percent Meal Consumed - Lunch: 80 Percent Meal Consumed - Dinner: 100 Subjective Subjective Patient was seen & assessed and interval progress reviewed with treatment team nursing and social work. He participated in all afternoon groups yesterday and worked on his safety plan. He slept well last night with mirtazapine and no morning grogginess. No side effects from the lexapro and no TINOCO today. He tried the propranolol yesterday for anxiety with good effect and no side effects. Mood is starting to improve slightly. No current cravings for methamphetamine. Physical Exam Psychiatric Orientation: alert and oriented x 3 Apperance: appropriately dressed and appropriately groomed Eye Contact: good eye contact Motor Behavior: no abnormal motor movements Speech: normal rate/rhythm/volume of speech Affect: + depressed affect Mood: + depressed mood Thought Process: goal directed thought process Thought Content: reality based without delusions Suicidal Thoughts: denies suicidal thoughts Homicidal Thoughts: denies homicidal thoughts Hallucinations: no auditory hallucinations and no visual hallucinations Cognition: attention grossly intact and language grossly intact Estimated Intelligence: consistent with education level Insight: + fair insight Judgement: + fair judgement Vital Signs (Past 24 Hours) Last Vital Signs Temp 36.5 C 08/23/21 06:31 Pulse 84 08/23/21 06:32 Resp 16 08/23/21 06:31 BP 118/76 08/23/21 06:32 Pulse Ox 98 08/22/21 21:39 Results & Data ([facility]) Current Inpatient Medications Current Inpatient Medications: Current Inpatient Medications Acetaminophen (Acetaminophen 325 Mg Tab) 650 mg PO Q4H PRN PRN Reason: Headache or Minor Fever Stop: 09/19/21 18:13 Last Admin: 08/22/21 09:17 Dose: 650 mg Documented by: Al Hydrox/Mg Hydrox/Simethicone (Aluminum/Magnesium Susp 30 Ml Udc) 30 ml PO Q4H PRN PRN Reason: GI Upset Stop: 09/19/21 18:13 Bismuth Subsalicylate (Bismuth Subsalicylate Liqd 236 Ml) 15 ml PO PRN PRN PRN Reason: Loose Stool Stop: 09/19/21 18:13 Escitalopram Oxalate (Escitalopram Oxalate 10 Mg Tab) 10 mg PO QAM [facility] Stop: 09/20/21 11:59 Last Admin: 08/23/21 09:32 Dose: 10 mg Documented by: Hydroxyzine HCl (Hydroxyzine Hcl 25 Mg Tab) 50 mg PO HSZ PRN PRN Reason: Insomnia Stop: 09/19/21 18:13 Hydroxyzine HCl (Hydroxyzine Hcl 25 Mg Tab) 25 mg PO Q4H PRN PRN Reason: Anxiety Stop: 09/19/21 18:13 Last Admin: 08/21/21 10:30 Dose: 25 mg Documented by: Magnesium Hydroxide (Magnesium Hydroxide Susp 30 Ml Udc) 30 ml PO DAILY PRN PRN Reason: Constipation Stop: 09/19/21 18:13 Mirtazapine (Mirtazapine Tab 15 Mg Tab) 15 mg PO HS [facility] Stop: 09/20/21 21:59 Last Admin: 08/22/21 21:38 Dose: 15 mg Documented by: Miscellaneous (Remove Nicoderm Patch) 1 ea N/A DAILY@0859 [facility] Stop: 09/20/21 08:58 Last Admin: 08/23/21 10:27 Dose: 1 ea Documented by: Miscellaneous (Remove Nicoderm Patch) 1 ea N/A DAILY@0859 [facility] Stop: 09/20/21 08:58 Last Admin: 08/23/21 10:28 Dose: Not Given Documented by: Nicotine (Nicotine 14 Mg/24 Hr Patch) 14 mg TD [facility] Stop: 09/20/21 08:59 Last Admin: 08/23/21 09:32 Dose: 14 mg Documented by: Nicotine Polacrilex (Nicotine Polacrilex 2 Mg Gum) 1 piece MT PRN PRN PRN Reason: Nicotine Withdrawal Stop: 09/19/21 18:13 Last Admin: 08/21/21 10:31 Dose: 1 piece Documented by: Propranolol HCl (Propranolol Hcl 10 Mg Tab) 10 mg PO BID PRN PRN Reason: Anxiety/Agitation Stop: 09/20/21 11:59 Last Admin: 08/22/21 21:38 Dose: 10 mg Documented by: Quetiapine Fumarate (Quetiapine Fumarate 25 Mg Tablet) 50 mg PO BID PRN PRN Reason: Agitation Stop: 09/20/21 11:59 Sodium Chloride (Sodium Chloride 0.65% Na Soln 45 Ml ([place])) 1 - 2 sprays NA PRN PRN PRN Reason: Nasal Dryness/Congestion Stop: 09/19/21 18:13 Mental Health & Subst Abuse Tx Psychiatrist Name of Psychiatrist: Gigi Psychiatrist's Time of Appointment with Psychiatrist: Will be referred after initial intake Psychiatric Appointment Comment: [address] [place], [place] Therapist Name of Therapist: Gigi Reed Therapist's Date of Therapist Appointment: 08/26/21 Time of Therapist Appointment: 4:30pm Therapy Appointment Comment: [address] [place], [place] Wool Hat Flanger Name of Wool Hat Flanger: [facility] [place] Phone Number for Wool Hat Flanger: [phone] Post Discharge Appointments Primary Care Physician Name Of Family Doctor: [facility] - Dr. Leidy Ross Primary Care Date of Appointment with PCP: 12/10/21 Time of Appointment with PCP: 3:20 p.m. Provider Appointment Comment: [address] [place] [address] Contact Information Discharge Discharge Address: [address] [address]
[2021-08-23] MEDS: MIRTAZAPINE TAB 15 MG TAB PO SCH (20:53)
[2021-08-24] MEDS: ESCITALOPRAM OXALATE 10 MG TAB PO SCH (09:20)
[2021-08-24] MEDS: NICOTINE 14 MG/24 HR PATCH TD SCH (09:21)
--- NOTE | 2021-08-24 10:46 | Psychiatric Progress Note ---
Date of Service August 24, 2021 Impression / Recommendations Impression The patient is a 30 year old man with a history of anxiety, depression and polysubstance use who was admitted for worsening depression and SI in the context of multiple psychosocial stressors including recent incarceration, homelessness, relationship conflict, financial strain and relapse of methamphetamine use. Diagnostically consistent with APRIL, social anxiety disorder and unspecified depression likely MDD versus substance-induced depression as well as meeting criteria for methamphetamine use disorder and history of alcohol use disorder in sustained remission. The patient is deemed unstable and requires psychiatric hospitalization for diagnostic clarification, safety and stabilization, medication management and development of further coping skills. 08/24/21: improving (1) APRIL (generalized anxiety disorder): (2) Social anxiety disorder: (3) Major depressive disorder, recurrent, unspecified: (4) Methamphetamine use disorder, moderate: (5) Alcohol use disorder, moderate, in sustained remission: 08/24/21: The patient has been using meth prior to admission. Brief intervention was offered and accepted. Intervention was greater than 5 min in length and included assessing readiness to quit, advice on how to reduce or abstain from substances. clinical social worker states he will have a D&A CM and services with [facility] on discharge. 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 fasting labs ordered. Reviewed care by Dr. Gallegos in italics. 08/23/21: Continue lexapro 10mg qd, mirtazapine 15 mg qhs for insomnia, propranolol 10 mg BID for anxiety, seroquel 50 mg BID prn for agitation/anxiety. 08/22/21: Continue medications, he didn't need to use any prn's yesterday or today. Motivational interviewing regarding substance use and he's agreeable to doing an IOP. 08/21/21: The patient was admitted to the [facility] ([facility] unit) on q15 min checks (behavioral with suicide precautions) for safety. The patient will participate in group, recreational, and milieu therapies and will be offered additional individual and family sessions as clinically appropriate. -Start lexapro 10 mg qd for anxiety and depression -Start mirtazapine 15 mg qhs for depression and insomnia -Start propranolol 10mg BID prn for anxiety -Seroquel 50 mg BID prn po in case of acute agitation Inventory Assets Strengths: motivated for substance use treatment, suportive partner Needs: stable housing, substance use treatment like IOP Risk Factors Assessment Male: Yes : Yes Do You Have Access To A Gun?: No Health Problems: No Mental Health Diagnoses: Yes Substance Use Disorders: Yes Previous Attempt: Yes Previous Psychiatric Hospitalization: No Hopelessness: No Protective Factors Assessment Employed: No Stable Relationships: Yes Supportive Family: Yes Interval History Identifying Information NARGIS CACERES is a 30-year-old man who is currently homeless, has a history of anxiety, depression and polysubstance use disorder, and was admitted on 08/20/21 18:14 on a 201 voluntary commitment for worsening depression and SI. Chief Complaint "I feel like things are getting on track". Review of Systems Sleep Information Total Hours of Sleep: 7 Sleep Comments: pt on q-15 minute checks Meal Information Percent Meal Consumed - Breakfast: 100 Percent Meal Consumed - Lunch: 80 Percent Meal Consumed - Dinner: 100 Subjective Subjective Patient was seen & assessed and interval progress reviewed with nursing and social work. The patient reports improved sleep and prn medication helping for anxiety and reinterates that would be helpful to have Seroquel prn at discharge as took for 9 months in past. Reviewed hospital quality measure re: fasting labs. Physical Exam Psychiatric Orientation: alert and oriented x 3 Apperance: appropriately dressed and appropriately groomed Eye Contact: good eye contact Motor Behavior: no abnormal motor movements Speech: normal rate/rhythm/volume of speech Affect: + depressed affect Mood: + depressed mood Thought Process: goal directed thought process Thought Content: reality based without delusions Suicidal Thoughts: denies suicidal thoughts Homicidal Thoughts: denies homicidal thoughts Hallucinations: no auditory hallucinations and no visual hallucinations Cognition: attention grossly intact and language grossly intact Estimated Intelligence: consistent with education level Insight: + fair insight Judgement: + fair judgement Vital Signs (Past 24 Hours) Last Vital Signs Temp 36.4 C L 08/24/21 06:37 Pulse 71 08/24/21 06:37 Resp 16 08/24/21 06:37 BP 129/79 08/24/21 06:37 Pulse Ox 98 08/22/21 21:39 Results & Data ([facility]) Current Inpatient Medications Current Inpatient Medications: Current Inpatient Medications Acetaminophen (Acetaminophen 325 Mg Tab) 650 mg PO Q4H PRN PRN Reason: Headache or Minor Fever Stop: 09/19/21 18:13 Last Admin: 08/22/21 09:17 Dose: 650 mg Documented by: Al Hydrox/Mg Hydrox/Simethicone (Aluminum/Magnesium Susp 30 Ml Udc) 30 ml PO Q4H PRN PRN Reason: GI Upset Stop: 09/19/21 18:13 Bismuth Subsalicylate (Bismuth Subsalicylate Liqd 236 Ml) 15 ml PO PRN PRN PRN Reason: Loose Stool Stop: 09/19/21 18:13 Escitalopram Oxalate (Escitalopram Oxalate 10 Mg Tab) 10 mg PO QAM [facility] Stop: 09/20/21 11:59 Last Admin: 08/24/21 09:20 Dose: 10 mg Documented by: Hydroxyzine HCl (Hydroxyzine Hcl 25 Mg Tab) 50 mg PO HSZ PRN PRN Reason: Insomnia Stop: 09/19/21 18:13 Hydroxyzine HCl (Hydroxyzine Hcl 25 Mg Tab) 25 mg PO Q4H PRN PRN Reason: Anxiety Stop: 09/19/21 18:13 Last Admin: 08/21/21 10:30 Dose: 25 mg Documented by: Magnesium Hydroxide (Magnesium Hydroxide Susp 30 Ml Udc) 30 ml PO DAILY PRN PRN Reason: Constipation Stop: 09/19/21 18:13 Mirtazapine (Mirtazapine Tab 15 Mg Tab) 15 mg PO HS [facility] Stop: 09/20/21 21:59 Last Admin: 08/23/21 20:53 Dose: 15 mg Documented by: Miscellaneous (Remove Nicoderm Patch) 1 ea N/A DAILY@0859 [facility] Stop: 09/20/21 08:58 Last Admin: 08/24/21 09:23 Dose: 1 ea Documented by: Miscellaneous (Remove Nicoderm Patch) 1 ea N/A DAILY@0859 [facility] Stop: 09/20/21 08:58 Last Admin: 08/24/21 09:23 Dose: Not Given Documented by: Nicotine (Nicotine 14 Mg/24 Hr Patch) [facility] Stop: 09/20/21 08:59 Last Admin: 08/24/21 09:21 Dose: 14 mg Documented by: Nicotine Polacrilex (Nicotine Polacrilex 2 Mg Gum) 1 piece MT PRN PRN PRN Reason: Nicotine Withdrawal Stop: 09/19/21 18:13 Last Admin: 08/21/21 10:31 Dose: 1 piece Documented by: Propranolol HCl (Propranolol Hcl 10 Mg Tab) 10 mg PO BID PRN PRN Reason: Anxiety/Agitation Stop: 09/20/21 11:59 Last Admin: 08/22/21 21:38 Dose: 10 mg Documented by: Quetiapine Fumarate (Quetiapine Fumarate 25 Mg Tablet) 50 mg PO BID PRN PRN Reason: Agitation Stop: 09/20/21 11:59 Sodium Chloride (Sodium Chloride 0.65% Na Soln 45 Ml ([place])) 1 - 2 sprays NA PRN PRN PRN Reason: Nasal Dryness/Congestion Stop: 09/19/21 18:13 Mental Health & Subst Abuse Tx Psychiatrist Name of Psychiatrist: Gigi Psychiatrist's Time of Appointment with Psychiatrist: Will be referred after initial intake Psychiatric Appointment Comment: [address] [place], [place] Therapist Name of Therapist: Gigi Reed Therapist's Date of Therapist Appointment: 08/26/21 Time of Therapist Appointment: 4:30pm Therapy Appointment Comment: [address] [place], [place] Medical Illustrator Name of Medical Illustrator: [facility] [place] Phone Number for Medical Illustrator: [phone] Case Management Appointment Comment: Will follow up with you on Thursday by phone Post Discharge Appointments Primary Care Physician Name Of Family Doctor: [facility] - Dr. Leidy Ross Primary Care Date of Appointment with PCP: 12/10/21 Time of Appointment with PCP: 3:20 p.m. Provider Appointment Comment: [address] [place] [address] Contact Information Discharge Discharge Address: [place] [address], [place] [id number] Contact Information Comment: [facility] at [address] [facility]
[2021-08-24] MEDS: PROPRANOLOL HCL 10 MG TAB PO PRN (15:52)
[2021-08-24] MEDS: MIRTAZAPINE TAB 15 MG TAB PO SCH (21:04)
[2021-08-25 07:52] LABS: Amphetamine Urine, Confirm 702 ng/mL (<250); MDA negative; MDEA negative; MDMA (Ecstasy) Urine, Confirm negative; Methamphetamine, Ur Confirm 14100 ng/mL (<250)
[2021-08-25 09:05] LABS: Glucose Fasting 100 mg/dl (70-99)
[2021-08-25 09:12] LABS: Chol HDL Ratio 4; Cholesterol 180 mg/dl (0-200); HDL Cholesterol 48 mg/dl; LDL Cholesterol Calculated 77 mg/dl; Triglycerides 273 mg/dl (0-150); VLDL Cholesterol 55 mg/dl
[2021-08-25] MEDS: NICOTINE 14 MG/24 HR PATCH TD SCH (09:31)
[2021-08-25] MEDS: ESCITALOPRAM OXALATE 10 MG TAB PO SCH (09:31)
--- NOTE | 2021-08-25 14:38 | Psychiatric Progress Note ---
Date of Service August 25, 2021 Impression / Recommendations Impression The patient is a 30 year old man with a history of anxiety, depression and polysubstance use who was admitted for worsening depression and SI in the context of multiple psychosocial stressors including recent incarceration, homelessness, relationship conflict, financial strain and relapse of methamphetamine use. Diagnostically consistent with APRIL, social anxiety disorder and unspecified depression likely MDD versus substance-induced depression as well as meeting criteria for methamphetamine use disorder and history of alcohol use disorder in sustained remission. The patient is deemed unstable and requires psychiatric hospitalization for diagnostic clarification, safety and stabilization, medication management and development of further coping skills. 08/25/21: slightly more anxious as anticipates discharge (1) APRIL (generalized anxiety disorder): (2) Social anxiety disorder: (3) Major depressive disorder, recurrent, unspecified: (4) Methamphetamine use disorder, moderate: (5) Alcohol use disorder, moderate, in sustained remission: continue current meds and treatment plan. Inventory Assets Strengths: motivated for substance use treatment, suportive partner Needs: stable housing, substance use treatment like IOP Risk Factors Assessment Male: Yes : Yes Do You Have Access To A Gun?: No Health Problems: No Mental Health Diagnoses: Yes Substance Use Disorders: Yes Previous Attempt: Yes Previous Psychiatric Hospitalization: No Hopelessness: No Protective Factors Assessment Employed: No Stable Relationships: Yes Supportive Family: Yes Interval History Identifying Information NARGIS CACERES is a 30-year-old man who is currently homeless, has a history of anxiety, depression and polysubstance use disorder, and was admitted on 08/20/21 18:14 on a 201 voluntary commitment for worsening depression and SI. Chief Complaint "just nervous about getting back out there". Review of Systems Sleep Information Total Hours of Sleep: 7 Sleep Comments: pt on q-15 minute checks Meal Information Percent Meal Consumed - Breakfast: 100 Percent Meal Consumed - Lunch: 100 Percent Meal Consumed - Dinner: 100 Subjective Subjective Patient was seen & assessed and interval progress reviewed with nursing and social work. in room by self rather than group. States feeling more anxious but not seeking prn. Physical Exam Psychiatric Orientation: alert and oriented x 3 Apperance: appropriately dressed and appropriately groomed Eye Contact: good eye contact Motor Behavior: no abnormal motor movements Speech: normal rate/rhythm/volume of speech Affect: + depressed affect Mood: + depressed mood Thought Process: goal directed thought process Thought Content: reality based without delusions Suicidal Thoughts: denies suicidal thoughts Homicidal Thoughts: denies homicidal thoughts Hallucinations: no auditory hallucinations and no visual hallucinations Cognition: attention grossly intact and language grossly intact Estimated Intelligence: consistent with education level Insight: + fair insight Judgement: + fair judgement Vital Signs (Past 24 Hours) Last Vital Signs Temp 36.5 C 08/25/21 06:36 Pulse 72 08/25/21 06:36 Resp 16 08/25/21 06:36 BP 128/85 08/25/21 06:36 Pulse Ox 98 08/22/21 21:39 Results & Data ([facility]) Laboratory Results Laboratory Results - last 24 hr 08/20/21 08/25/21 14:14 08:27 Fasting Glucose 100 H Triglycerides 273 H Cholesterol 180 LDL Cholesterol, Calc 77 VLDL Cholesterol, Calc 55 HDL Cholesterol 48 Cholesterol/HDL Ratio 4 U Amphetamines Confirm 702 H U Methamphetamin Confrm 48981 H Urine MDEA negative MDMA negative Urine MDMA negative Drug Screen Comment SEE NOTE Current Inpatient Medications Current Inpatient Medications: Current Inpatient Medications Acetaminophen (Acetaminophen 325 Mg Tab) 650 mg PO Q4H PRN PRN Reason: Headache or Minor Fever Stop: 09/19/21 18:13 Last Admin: 08/22/21 09:17 Dose: 650 mg Documented by: Al Hydrox/Mg Hydrox/Simethicone (Aluminum/Magnesium Susp 30 Ml Udc) 30 ml PO Q4H PRN PRN Reason: GI Upset Stop: 09/19/21 18:13 Bismuth Subsalicylate (Bismuth Subsalicylate Liqd 236 Ml) 15 ml PO PRN PRN PRN Reason: Loose Stool Stop: 09/19/21 18:13 Escitalopram Oxalate (Escitalopram Oxalate 10 Mg Tab) 10 mg PO QAM [facility] Stop: 09/20/21 11:59 Last Admin: 08/25/21 09:31 Dose: 10 mg Documented by: Hydroxyzine HCl (Hydroxyzine Hcl 25 Mg Tab) 50 mg PO HSZ PRN PRN Reason: Insomnia Stop: 09/19/21 18:13 Hydroxyzine HCl (Hydroxyzine Hcl 25 Mg Tab) 25 mg PO Q4H PRN PRN Reason: Anxiety Stop: 09/19/21 18:13 Last Admin: 08/21/21 10:30 Dose: 25 mg Documented by: Magnesium Hydroxide (Magnesium Hydroxide Susp 30 Ml Udc) 30 ml PO DAILY PRN PRN Reason: Constipation Stop: 09/19/21 18:13 Mirtazapine (Mirtazapine Tab 15 Mg Tab) 15 mg PO HS [facility] Stop: 09/20/21 21:59 Last Admin: 08/24/21 21:04 Dose: 15 mg Documented by: Miscellaneous (Remove Nicoderm Patch) 1 ea N/A DAILY@0859 [facility] Stop: 09/20/21 08:58 Last Admin: 08/25/21 09:34 Dose: 1 ea Documented by: Miscellaneous (Remove Nicoderm Patch) 1 ea N/A DAILY@0859 [facility] Stop: 09/20/21 08:58 Last Admin: 08/25/21 09:34 Dose: Not Given Documented by: Nicotine (Nicotine 14 Mg/24 Hr Patch) 14 mg TD QAM [facility] Stop: 09/20/21 08:59 Last Admin: 08/25/21 09:31 Dose: 14 mg Documented by: Nicotine Polacrilex (Nicotine Polacrilex 2 Mg Gum) 1 piece MT PRN PRN PRN Reason: Nicotine Withdrawal Stop: 09/19/21 18:13 Last Admin: 08/21/21 10:31 Dose: 1 piece Documented by: Propranolol HCl (Propranolol Hcl 10 Mg Tab) 10 mg PO BID PRN PRN Reason: Anxiety/Agitation Stop: 09/20/21 11:59 Last Admin: 08/24/21 15:52 Dose: 10 mg Documented by: Quetiapine Fumarate (Quetiapine Fumarate 25 Mg Tablet) 50 mg PO BID PRN PRN Reason: Agitation Stop: 09/20/21 11:59 Sodium Chloride (Sodium Chloride 0.65% Na Soln 45 Ml ([place])) 1 - 2 sprays NA PRN PRN PRN Reason: Nasal Dryness/Congestion Stop: 09/19/21 18:13 Mental Health & Subst Abuse Tx Psychiatrist Name of Psychiatrist: Gigi Psychiatrist's Time of Appointment with Psychiatrist: Will be referred after initial intake Psychiatric Appointment Comment: [address] [place], [place] Therapist Name of Therapist: Gigi Reed Therapist's Date of Therapist Appointment: 08/26/21 Time of Therapist Appointment: 4:30pm Therapy Appointment Comment: [address] [place], [place] Manager Compensation Name of Manager Compensation: [employer] [facility] [place] Phone Number for Manager Compensation: [phone] Case Management Appointment Comment: Will follow up with you on Thursday by phone Post Discharge Appointments Primary Care Physician Name Of Family Doctor: [facility] - Dr. Leidy Ross Primary Care Date of Appointment with PCP: 12/10/21 Time of Appointment with PCP: 3:20 p.m. Provider Appointment Comment: [address], [place] [address] Contact Information Discharge Discharge Address: [address] [address] Contact Information Comment: [facility] at [address] [place] [address]
[2021-08-25] MEDS: MIRTAZAPINE TAB 15 MG TAB PO SCH (21:09)
[2021-08-26] MEDS: NICOTINE 14 MG/24 HR PATCH TD SCH (09:51)
[2021-08-26] MEDS: ESCITALOPRAM OXALATE 10 MG TAB PO SCH (09:51)
--- NOTE | 2021-08-26 10:08 | Discharge Summary ---
Date of Service August 26, 2021 History of Present Illness As per Dr. Gallegos on admission: Adrian is a 30 yo man with a history of anxiety, depression and polysubstance use disorder who is currently couch surfing and recently incarcerated due to a parole violation who presents for worsening mood symptoms and SI in the context of multiple psychosocial stressors. Adrian describes low mood with significant anxiety, difficulty sleeping, low self-esteem, worthlessness and decreased energy with intermittent SI over the last few weeks. More recently he's had thoughts of SI with potential plan of overdosing on opioids. He cites multiple stressors, many stemming from recent relapse of methamphetamine use including recently being incarcerated for a parole violation for using methamphetamine in May, homelessness, financial stressors, relationship conflict with his girlfriend, strained relationship with his family, stress from the holidays. He describes a history of substance use, initially with escalating binge use of alcohol (up to 1/5 hard liquor and 12 pack of beer per day) following the of his mother ten years ago. His alcohol use escalated over time and resulted in multiple legal, familial and financial consequences including DUI charges. For the last 3 years he has been in sustained remission from alcohol and no longer has cravings for use. However, he states he substituted "one substance for another" and for the last three years has been using methamphetamine via snor ting or smoking as well as intermittent use of suboxone and marijuana. No history of IVDU. He has done residential substance use treatment in the past including most recently May 2021 and he abstained from any use until the day before when he used methamphetamine and suboxone and then three days ago he used methamphetamine again. He is motivated to avoid any further substance use and denies any current cravings. Notes that anxiety is often a major driving factor behind his substance use. Psychiatric ROS notable for past good experience with celexa for anxiety and mood while in long-term, no hx monserrat, no hx psychosis though has experienced AH at times in the past in periods of high anxiety thinking someone is whispering negative comments about him, hx panic attacks in the past (rare), no hx trauma, no hx HI, no hx violence. Physical Exam Psychiatric See admission H&P and DOD summary. Vital Signs (Past 24 Hours) Last Vital Signs Temp 36.4 C L 08/26/21 06:33 Pulse 81 12/06/21 06:34 Resp 16 08/26/21 06:33 BP 132/87 08/26/21 06:34 Pulse Ox 98 08/22/21 21:39 Principal Diagnosis Major depressive disorder Psychiatric Data See daily stay summary. In short, safety was maintained and the patient was cooperative with care. Medication changes included starting Lexapro and Remeron to address anxiety, depression and mood related sleep issues and they tolerated this well. He also benefitted from prn propranolol for breakthrough anxiety. He previously benefitted from Seroquel and requested Dr. Gallegos provide availability of additional prn for breakthrough. A family session was held with his girlfriend by phone and safety plan was completed prior to discharge. He experienced appropriate anxiety/excitement in anticipation of discharge. Re- reviewed risks/benefits/alternatives re: his current medications. Day of Discharge Assessment Today the patient voices readiness for discharge. They note improvement in mood and deny thoughts to harm self or others. Thoughts remain organized and they are improved from admission. There is no evidence of psychosis. They agree to take mediations as prescribed and keep follow-up appointments. They are stable for discharge to outpatient level of care. Transition of Care Transition Of Care Record: was reviewed with the patient Advance Directives Advance Directives Information Provided: Yes Advance Directives: No Mental Health Advance Directive: No Living Will: No Power of Drafting Layout Worker: No Advance Directives Reason:: Declines as Mental Health Visit. Risk Factors Assessment Male: Yes : Yes Do You Have Access To A Gun?: No Health Problems: No Mental Health Diagnoses: Yes Substance Use Disorders: Yes Previous Attempt: Yes Previous Psychiatric Hospitalization: No Hopelessness: No Protective Factors Assessment Employed: No Stable Relationships: Yes Supportive Family: Yes Tobacco Cessation at Discharge Tobacco Cessation Medication Prescribed at Discharge: Offered & Pt Refused Total Time Total Time Spent: Greater Than 30 Minutes Total Time Includes: Examination of the patient, Discharge Planning and Medication Reconciliation Discharge Data Lab Results 08/20/21 08/20/21 08/20/21 13:45 13:45 13:45 WBC 10.63 RBC 5.07 Hgb 15.5 Hct 44.5 MCV 87.8 MCH 30.6 MCHC 34.8 RDW Std Deviation 41.9 RDW Coeff of [place] 13.1 Plt Count 337 MPV 9.3 Immature Gran % (Auto) 0.3 Neut % (Auto) 71.3 Lymph % (Auto) 19.3 Waldo % (Auto) 7.4 Eos % (Auto) 1.2 Baso % (Auto) 0.5 Neut # (Auto) 7.58 H Lymph # (Auto) 2.05 Waldo # (Auto) 0.79 H Eos # (Auto) 0.13 Baso # (Auto) 0.05 Immature Gran # (Auto) 0.03 H Sodium 141 Potassium 3.4 L Chloride 110 H Carbon Dioxide 23 Anion Gap 8.0 BUN 11 Creatinine 1.00 Est Cr Clr Drug Dosing 131.8 Est GFR ( Amer) 115.7 Est GFR (Non-Af Amer) 99.8 BUN/Creatinine Ratio 10.8 Glucose 118 H Fasting Glucose Calcium 9.2 Total Bilirubin 0.5 AST 13 L ALT 33 Alkaline Phosphatase 74 Total Protein 8.8 H Albumin 4.0 Globulin 4.8 H Albumin/Globulin Ratio 0.8 L Triglycerides Cholesterol LDL Cholesterol, Calc VLDL Cholesterol, Calc HDL Cholesterol Cholesterol/HDL Ratio TSH 1.040 Urine Color Urine Appearance Urine pH Ur Specific [place] Urine Protein Urine Glucose (UA) Urine Ketones Urine Blood Urine Nitrite Urine Bilirubin Urine Urobilinogen Ur Leukocyte Esterase Urine WBC (Auto) Urine RBC (Auto) U Hyaline Cast (Auto) U Epithel Cells (Auto) Urine Bacteria (Auto) Ur Renal Epithelial Cell Urine Sperm Nasal Screen MRSA (PCR) Salicylates 2.2 L Urine Opiates Screen Ur Methadone, Qual Acetaminophen < 2 L Urine Barbiturates Ur Phencyclidine (PCP) U Amphetamin/Meth Scrn MDMA (Ecstasy) Screen U Amphetamines Confirm U Methamphetamin Confrm Urine MDEA MDMA Urine MDMA U Benzodiazepines Scrn Ur Cocaine Metabolite U Marijuana (THC) Screen Drug Screen Comment Ethyl Alcohol mg/dL SARS-CoV-2, RNA, NAAT 08/20/21 08/20/21 08/20/21 13:45 14:14 14:14 WBC RBC Hgb Hct MCV MCH MCHC RDW Std Deviation RDW Coeff of [place] Plt Count MPV Immature Gran % (Auto) Neut % (Auto) Lymph % (Auto) Waldo % (Auto) Eos % (Auto) Baso % (Auto) Neut # (Auto) Lymph # (Auto) Waldo # (Auto) Eos # (Auto) Baso # (Auto) Immature Gran # (Auto) Sodium Potassium Chloride Carbon Dioxide Anion Gap BUN Creatinine Est Cr Clr Drug Dosing Est GFR ( Amer) Est GFR (Non-Af Amer) BUN/Creatinine Ratio Glucose Fasting Glucose Calcium Total Bilirubin AST ALT Alkaline Phosphatase Total Protein Albumin Globulin Albumin/Globulin Ratio Triglycerides Cholesterol LDL Cholesterol, Calc VLDL Cholesterol, Calc HDL Cholesterol Cholesterol/HDL Ratio TSH Urine Color Urine Appearance Urine pH Ur Specific [place] Urine Protein Urine Glucose (UA) Urine Ketones Urine Blood Urine Nitrite Urine Bilirubin Urine Urobilinogen Ur Leukocyte Esterase Urine WBC (Auto) Urine RBC (Auto) U Hyaline Cast (Auto) U Epithel Cells (Auto) Urine Bacteria (Auto) Ur Renal Epithelial Cell Urine Sperm Nasal Screen MRSA (PCR) Salicylates Urine Opiates Screen Neg Ur Methadone, Qual Neg Acetaminophen Urine Barbiturates Neg Ur Phencyclidine (PCP) Neg U Amphetamin/Meth Scrn Pos H MDMA (Ecstasy) Screen Pos H U Amphetamines Confirm U Methamphetamin Confrm Urine MDEA MDMA Urine MDMA U Benzodiazepines Scrn Neg Ur Cocaine Metabolite Neg U Marijuana (THC) Screen Neg Drug Screen Comment Ethyl Alcohol mg/dL < 3.0 SARS-CoV-2, RNA, NAAT NEGATIVE 08/20/21 08/20/21 08/20/21 14:14 14:14 16:10 WBC RBC Hgb Hct MCV MCH MCHC RDW Std Deviation RDW Coeff of [place] Plt Count MPV Immature Gran % (Auto) Neut % (Auto) Lymph % (Auto) Waldo % (Auto) Eos % (Auto) Baso % (Auto) Neut # (Auto) Lymph # (Auto) [place] # (Auto) Eos # (Auto) Baso # (Auto) Immature Gran # (Auto) Sodium Potassium Chloride Carbon Dioxide Anion Gap BUN Creatinine Est Cr Clr Drug Dosing Est GFR ( Amer) Est GFR (Non-Af Amer) BUN/Creatinine Ratio Glucose Fasting Glucose Calcium Total Bilirubin AST ALT Alkaline Phosphatase Total Protein Albumin Globulin Albumin/Globulin Ratio Triglycerides Cholesterol LDL Cholesterol, Calc VLDL Cholesterol, Calc HDL Cholesterol Cholesterol/HDL Ratio TSH Urine Color Yellow Urine Appearance Clear Urine pH 5.0 Ur Specific [place] 1.022 Urine Protein 1+ H Urine Glucose (UA) Negative Urine Ketones Negative Urine Blood Negative Urine Nitrite Negative Urine Bilirubin Negative Urine Urobilinogen Negative Ur Leukocyte Esterase Trace H Urine WBC (Auto) 5-10 H Urine RBC (Auto) 0-4 U Hyaline Cast (Auto) 5-10 H U Epithel Cells (Auto) >30 H Urine Bacteria (Auto) Negative Ur Renal Epithelial Cell Not Reportable Urine Sperm Present A Nasal Screen MRSA (PCR) Negative Salicylates Urine Opiates Screen Ur Methadone, Qual Acetaminophen Urine Barbiturates Ur Phencyclidine (PCP) U Amphetamin/Meth Scrn MDMA (Ecstasy) Screen U Amphetamines Confirm 702 H U Methamphetamin Confrm 40139 H Urine MDEA negative MDMA negative Urine MDMA negative U Benzodiazepines Scrn Ur Cocaine Metabolite U Marijuana (THC) Screen Drug Screen Comment SEE NOTE Ethyl Alcohol mg/dL SARS-CoV-2, RNA, NAAT 08/25/21 08:27 WBC RBC Hgb Hct MCV MCH MCHC RDW Std Deviation RDW Coeff of [place] Plt Count MPV Immature Gran % (Auto) Neut % (Auto) Lymph % (Auto) [place] % (Auto) Eos % (Auto) Baso % (Auto) Neut # (Auto) Lymph # (Auto) [place] # (Auto) Eos # (Auto) Baso # (Auto) Immature Gran # (Auto) Sodium Potassium Chloride Carbon Dioxide Anion Gap BUN Creatinine Est Cr Clr Drug Dosing Est GFR ( Amer) Est GFR (Non-Af Amer) BUN/Creatinine Ratio Glucose Fasting Glucose 100 H Calcium Total Bilirubin AST ALT Alkaline Phosphatase Total Protein Albumin Globulin Albumin/Globulin Ratio Triglycerides 273 H Cholesterol 180 LDL Cholesterol, Calc 77 VLDL Cholesterol, Calc 55 HDL Cholesterol 48 Cholesterol/HDL Ratio 4 TSH Urine Color Urine Appearance Urine pH Ur Specific [place] Urine Protein Urine Glucose (UA) Urine Ketones Urine Blood Urine Nitrite Urine Bilirubin Urine Urobilinogen Ur Leukocyte Esterase Urine WBC (Auto) Urine RBC (Auto) U Hyaline Cast (Auto) U Epithel Cells (Auto) Urine Bacteria (Auto) Ur Renal Epithelial Cell Urine Sperm Nasal Screen MRSA (PCR) Salicylates Urine Opiates Screen Ur Methadone, Qual Acetaminophen Urine Barbiturates Ur Phencyclidine (PCP) U Amphetamin/Meth Scrn MDMA (Ecstasy) Screen U Amphetamines Confirm U Methamphetamin Confrm Urine MDEA MDMA Urine MDMA U Benzodiazepines Scrn Ur Cocaine Metabolite U Marijuana (THC) Screen Drug Screen Comment Ethyl Alcohol mg/dL SARS-CoV-2, RNA, NAAT Hospital Course (1) APRIL (generalized anxiety disorder): (2) Social anxiety disorder: (3) Major depressive disorder, recurrent, unspecified: (4) Methamphetamine use disorder, moderate: (5) Alcohol use disorder, moderate, in sustained remission: 08/23/21: Continue lexapro 10mg qd, mirtazapine 15 mg qhs for insomnia, propranolol 10 mg BID for anxiety, seroquel 50 mg BID prn for agitation/anxiety. 08/22/21: Continue medications, he didn't need to use any prn's yesterday or today. Motivational interviewing regarding substance use and he's agreeable to doing an IOP. 08/21/21: The patient was admitted to the [facility]) on q15 min checks (behavioral with suicide precautions) for safety. The patient will participate in group, recreational, and milieu therapies and will be offered additional individual and family sessions as clinically appropriate. -Start lexapro 10 mg qd for anxiety and depression -Start mirtazapine 15 mg qhs for depression and insomnia -Start propranolol 10mg BID prn for anxiety -Seroquel 50 mg BID prn po in case of acute agitation Mental Health & Subst Abuse Tx Psychiatrist Name of Psychiatrist: Gigi Psychiatrist's Time of Appointment with Psychiatrist: Will be referred after initial intake Psychiatric Appointment Comment: [address] [place], [place] Therapist Name of Therapist: Gigi Reed Therapist's Date of Therapist Appointment: 08/26/21 Time of Therapist Appointment: 4:30pm Therapy Appointment Comment: [address] [place], [place] Wet Pour Mixer Name of Wet Pour Mixer: [facility] Juanito Mckenna Phone Number for Wet Pour Mixer: [phone] Case Management Appointment Comment: Will follow up with you on Thursday by phone Post Discharge Appointments Primary Care Physician Name Of Family Doctor: [facility] - Dr. Leidy Ross Primary Care Date of Appointment with PCP: 12/10/21 Time of Appointment with PCP: 3:20 p.m. Provider Appointment Comment: [phone], [place] [address] Smoking Cessation Counseling Tobacco Cessation Medication Prescribed at Discharge: Offered & Pt Refused Other #1: Name of Aftercare Appointment: [facility] Phone Number of Aftercare Appointment: [phone] / Aftercare Appointment Comment: Please contact to obtain a physical copy of your MA card #2: Name of Aftercare Appointment: [facility] [place] Phone Number of Aftercare Appointment: [phone] Aftercare Appointment Comment: Keep in contact re: housing options/needs Contact Information Discharge Discharge Address: [address] [address], [place] [address] Contact Information Comment: [facility] [address] Discharge Plan Discharge Items Patient Disposition: Home - Self-Care Reason For Visit: SUICIDAL THOUGHTS/TALKING OF KILLING HIMSELF Discharge Diagnosis: major depressive disorder Activity: Resume your previous activity Non-emergency contact: Primary Care Provider, Psychiatrist and Therapist Call non-emergency contact if: you have any medication questions and your symptoms worsen Follow-up/Referrals: PCP,NO [Primary Care Provider] - Diet: Regular Addtl Attending Provider Instructions: SPECIAL CARE INSTRUCTIONS: 1. Follow through with your scheduled aftercare appointments. If unable to keep an appointment, please call to reschedule. 2. Take your medication only as prescribed. Medication should not be changed or stopped without the approval of your doctor. In the event of worsening symptoms or concerns about side effects, contact your doctor immediately. 3. Utilize new healthy coping skills, anger management skills, and stress management skills learned during your hospitalization. Journal feelings and process them with a support person. Identify stressors or situations that may result in relapse, deterioration or inappropriate behaviors and develop a plan to deal with those issues. 4. If your coping skills are ineffective and you are in crisis, contact your outpatient providers for direction. If unable to reach your providers, please call the [facility] CRISIS LINE AT , go to the [facility] walk-in center at [address], [address], [place], or go to the closest Emergency Room. 5. Avoid alcohol and un-prescribed drugs. 6. You have been provided with the Mental Health Advance Directives Pamphlet for your review. 7. Your condition is stable for discharge to outpatient level of care, but recovery is an ongoing process. Ifthoughts to harm yourself or others return, follow the safety plan developed during your stay. Planning for a safe return home includes securing weapons. Our treatment team recommends weaponsbe removed from the home until your outpatient provider reassesses your progress. In rare cases where the items themselvescannot be removed, guns and ammunitionshould be secured separatelyand keys stored by a reliable personoutside of the home. If you were admitted on an involuntary commitment, the police or other legal authorities may be involved in this process. AFTERCARE APPOINTMENTS: * Please call your insurance company prior to your scheduled appointment to confirm your aftercare providers are covered. Take your insurance information to your appointments. WHO TO CALL AND WHEN: Medical Emergencies: For questions or emergencies related to your hospital stay, please contact the Inpatient Behavioral Health Unit at [phone]. A senior software development engineer is on-call 13/04 for the Behavioral Health Unit for emergencies At any time you feel your situation is an emergency, you may also call 911 immediately. Pending Studies at Discharge: No Stand-Alone Forms: My [employer], Smoking Cessation Medications and DC Order Prescriptions: New propranolol 10 mg Tablet 10 mg PO BID PRN (Reason: anxiety) Qty: 30 RF: 0 escitalopram oxalate 10 mg Tablet 10 mg PO QAM Qty: 30 RF: 0 mirtazapine 15 mg Tablet 15 mg PO HS Qty: 30 RF: 0 quetiapine 25 mg Tablet 50 mg PO BID PRN (Reason: anxiety) Qty: 30 RF: 0 Discharge Orders: Discharge Order (Routine); Ordered 08/26/21 Ordered By: Catina uCellar Admission Data Admit Date/Time: 08/20/21 18:14 Attending Provider: Catina Cuellar Admit Provider: Brooke Gallegos Primary Care Provider: PCP,NO Other Interventions: Discharge Summary Assessment (RN) Last Done: 08/26/21 10:40 PSY Interdisciplinary Discharge Planning Last Done: 08/26/21 10:50 Coding Level of Care Code 16834 D/C day mgmt > 30 min Diagnoses APRIL (generalized anxiety disorder) F41.1 Social anxiety disorder F40.10 Major depressive disorder, recurrent, unspecified F33.9 Methamphetamine use disorder, moderate F15.20 Alcohol use disorder, moderate, in sustained remission F10.21
== END 2021-08-26 11:35 | disposition home or self-care (01) | DRG 885 ==
LOC: ED 13:10 → 3S 18:14 → SUATTDRO 18:14 → 3S 18:31

== ENCOUNTER 2021-09-25 02:23 | Inpatient (IN) ==
--- NOTE | 2021-09-25 02:51 | Emergency Department Note ---
Impression & Plan Depression ADMIT ED Provider Note HPI: The patient is a 31-year-old male who presents the emergency department with a chief complaint of depression. Patient states is been worsening over the past several weeks over the holidays. He states that he recently had an argument with his girlfriend's family that seems to have exacerbated his symptoms. Patient states he was having thoughts of wanting to harm himself several weeks ago, now he just feels severely depressed but denies any thoughts of wanting to harm himself currently. He states he is abusing meth and recently used several hours prior to presentation. Denies any alcohol use. On arrival here to the ED the patient is hemodynamically stable, he is alert, he is able to give me a coherent history, he is otherwise no acute distress on my initial assessment. ROS: -Psychiatric: Depression *10 point review systems was conducted and is otherwise negative unless stated above *Outpatient medications and allergy history reviewed PE: General: Alert, NAD HEENT: Normocephalic, atraumatic, trachea midline Eyes: Extraocular eye movement is intact, no scleral erythema Pulmonary: Clear to auscultation bilaterally, no wheezing Cardio: Regular rate and rhythm GI: Abdomen is soft, nontender : No suprapubic tenderness MSK: No evidence of trauma or malformation of the extremities, no edema Skin: No evidence of rash Neuro: Alert, no focal deficits Psychiatric: Cooperative Medical Decision Making: Patient presented to the emergency department with increasing depression, states he has been using drugs, he is alert and oriented on arrival, states he does believe he needs inpatient help. He states he has had recent thoughts of wanting to harm himself although he does not have those thoughts today. Patient was medically cleared for case management assessment, he is determined appropriate for voluntary admission. 201 was signed. Patient was accepted 3 S. for further care. Patient was admitted in stable condition. Diagnosis: 1. Depression 2. Methamphetamine abuse Disposition: Admission to psychiatry Aneesh Boyd DO Emergency Medicine Past Med/Surg History Medical History (Updated 09/25/21 @ 04:34 by Aneesh Boyd DO) Alcohol use disorder, moderate, in sustained remission Drug use Drug use APRIL (generalized anxiety disorder) Major depressive disorder, recurrent, unspecified Methamphetamine use disorder, moderate Social anxiety disorder Surgical History No pertinent past surgical history Social History Smoking Status: Current every day smoker Preferred Language: Slovenian Supervisor Coating Required: No Beliefs That Will Affect Care: None Feels Safe at Home: Yes Assistive Devices: None Allergies Allergies Allergy/AdvReac Type Severity Reaction Status Date / Time No Known Allergies Allergy Verified 09/25/21 03:10 Home Meds Previous Rx's Medication Instructions Recorded escitalopram oxalate 10 mg tablet 10 mg PO QAM #30 tab 08/26/21 mirtazapine 15 mg tablet 15 mg PO HS #30 tab 08/26/21 propranolol 10 mg tablet 10 mg PO BID PRN #30 tab 08/26/21 quetiapine 25 mg tablet 50 mg PO BID PRN #30 tab 08/26/21 Results & Data (ED) Vital Signs Vital Signs - 24 hr 09/25/21 02:27 Temperature 36.5 C Temperature Source Temporal Artery Scan Pulse Rate 113 H Respiratory Rate 20 Respiratory Effort / Characteristics Non-Labored Spontaneous Respiratory Depth Normal Blood Pressure 150/99 H Blood Pressure Mean 116 Pulse Oximetry 99 Oxygen Delivery Method Room Air Sepsis New/Unexplained Change in Mental Status N/A Sepsis Action Taken by Nursing No Action Required Laboratory Data Result diagrams: 09/25/21 03:30 09/25/21 03:30 Lab Results 09/25/21 09/25/21 09/25/21 Range/Units 02:38 02:38 03:12 WBC (4.8-10.8) K/uL RBC (4.7-6.1) M/uL Hgb (14.0-18.0) g/dL Hct (42-52) % MCV (80-100) fL MCH (25-34) pg MCHC (32-36) g/dL RDW Std Deviation (36.4-46.3) fL RDW Coeff of [place] (11.5-14.5) % Plt Count (130-400) K/uL MPV (7.4-10.4) fL Immature Gran % (Auto) % Neut % (Auto) % Lymph % (Auto) % [place] % (Auto) % Eos % (Auto) % Baso % (Auto) % Neut # (Auto) (1.4-6.5) K/uL Lymph # (Auto) (1.2-3.4) K/uL [place] # (Auto) (0.11-0.59) K/uL Eos # (Auto) (0-0.5) K/uL Baso # (Auto) (0-0.2) K/uL Immature Gran # (Auto) (0.00-0.02) K/uL Sodium (136-145) mmol/L Potassium (3.5-5.1) mmol/L Chloride (98-107) mmol/L Carbon Dioxide (21-32) mmol/L Anion Gap (3-11) BUN (7-18) mg/dl Creatinine (0.6-1.4) mg/dl Est Cr Clr Drug Dosing ml/min Est GFR ( Amer) ml/min Est GFR (Non-Af Amer) ml/min BUN/Creatinine Ratio (10-20) Glucose (70-99) mg/dl Calcium (8.5-10.1) mg/dl Total Bilirubin (0.2-1) mg/dl AST (15-37) U/L ALT (12-78) Alkaline Phosphatase (45-117) U/L Total Protein (6.4-8.2) gm/dl Albumin (3.4-5.0) gm/dl Globulin (2.5-4.0) gm/dl Albumin/Globulin Ratio (0.9-2) TSH (0.300-4.500) uIu/ml Urine Color Dark Yellow Urine Appearance Clear (Clear) Urine pH 5.5 (4.5-7.5) Ur Specific [place] 1.026 (1.000-1.030) Urine Protein Trace H (Negative) Urine Glucose (UA) Negative (Negative) Urine Ketones Trace H (Negative) Urine Blood Negative (Negative) Urine Nitrite Negative (Negative) Urine Bilirubin 1+ H (Negative) Urine Urobilinogen Negative (Negative) Ur Leukocyte Esterase Negative (Negative) Urine WBC (Auto) 1-5 (0-5) /hpf Urine RBC (Auto) 0-4 (0-4) /hpf U Hyaline Cast (Auto) 1-5 (0-5) /lpf U Epithel Cells (Auto) 5-10 H (0-5) /lpf Urine Bacteria (Auto) Negative (Negative) Salicylates (2.8-20) mg/dl Urine Opiates Screen Neg (Neg) Ur Methadone, Qual Neg (Neg) Acetaminophen (10-30) ug/ml Urine Barbiturates Neg (Neg) Ur Phencyclidine (PCP) Neg (Neg) U Amphetamin/Meth Scrn Pos H (Neg) MDMA (Ecstasy) Screen Pos H (Neg) U Benzodiazepines Scrn Neg (Neg) Ur Cocaine Metabolite Neg (Neg) U Marijuana (THC) Screen Neg (Neg) Ethyl Alcohol mg/dL (0-3) mg/dl SARS-CoV-2, RNA, NAAT NEGATIVE (NEGATIVE) 09/25/21 09/25/21 09/25/21 Range/Units 03:30 03:30 03:30 WBC 11.82 H (4.8-10.8) K/uL RBC 5.22 (4.7-6.1) M/uL Hgb 16.0 (14.0-18.0) g/dL Hct 46.9 (42-52) % MCV 89.8 (80-100) fL MCH 30.7 (25-34) pg MCHC 34.1 (32-36) g/dL RDW Std Deviation 44.3 (36.4-46.3) fL RDW Coeff of [place] 13.4 (11.5-14.5) % Plt Count 317 (130-400) K/uL MPV 9.1 (7.4-10.4) fL Immature Gran % (Auto) 0.3 % Neut % (Auto) 59.4 % Lymph % (Auto) 29.4 % [place] % (Auto) 8.5 % Eos % (Auto) 2.0 % Baso % (Auto) 0.4 % Neut # (Auto) 7.02 H (1.4-6.5) K/uL Lymph # (Auto) 3.47 H (1.2-3.4) K/uL [place] # (Auto) 1.01 H (0.11-0.59) K/uL Eos # (Auto) 0.24 (0-0.5) K/uL Baso # (Auto) 0.05 (0-0.2) K/uL Immature Gran # (Auto) 0.03 H (0.00-0.02) K/uL Sodium 139 (136-145) mmol/L Potassium 3.7 (3.5-5.1) mmol/L Chloride 106 (98-107) mmol/L Carbon Dioxide 28 (21-32) mmol/L Anion Gap 5.0 (3-11) BUN 11 (7-18) mg/dl Creatinine 1.02 (0.6-1.4) mg/dl Est Cr Clr Drug Dosing 125.8 ml/min Est GFR ( Amer) 112.2 ml/min Est GFR (Non-Af Amer) 96.8 ml/min BUN/Creatinine Ratio 10.5 (10-20) Glucose 93 (70-99) mg/dl Calcium 9.3 (8.5-10.1) mg/dl Total Bilirubin 0.8 (0.2-1) mg/dl AST 21 (15-37) U/L ALT 40 (12-78) Alkaline Phosphatase 86 (45-117) U/L Total Protein 7.7 (6.4-8.2) gm/dl Albumin 4.1 (3.4-5.0) gm/dl Globulin 3.6 (2.5-4.0) gm/dl Albumin/Globulin Ratio 1.1 (0.9-2) TSH 1.040 (0.300-4.500) uIu/ml Urine Color Urine Appearance (Clear) Urine pH (4.5-7.5) Ur Specific [place] (1.000-1.030) Urine Protein (Negative) Urine Glucose (UA) (Negative) Urine Ketones (Negative) Urine Blood (Negative) Urine Nitrite (Negative) Urine Bilirubin (Negative) Urine Urobilinogen (Negative) Ur Leukocyte Esterase (Negative) Urine WBC (Auto) (0-5) /hpf Urine RBC (Auto) (0-4) /hpf U Hyaline Cast (Auto) (0-5) /lpf U Epithel Cells (Auto) (0-5) /lpf Urine Bacteria (Auto) (Negative) Salicylates 2.8 (2.8-20) mg/dl Urine Opiates Screen (Neg) Ur Methadone, Qual (Neg) Acetaminophen < 2 L (10-30) ug/ml Urine Barbiturates (Neg) Ur Phencyclidine (PCP) (Neg) U Amphetamin/Meth Scrn (Neg) MDMA (Ecstasy) Screen (Neg) U Benzodiazepines Scrn (Neg) Ur Cocaine Metabolite (Neg) U Marijuana (THC) Screen (Neg) Ethyl Alcohol mg/dL (0-3) mg/dl SARS-CoV-2, RNA, NAAT (NEGATIVE) 09/25/21 Range/Units 03:30 WBC (4.8-10.8) K/uL RBC (4.7-6.1) M/uL Hgb (14.0-18.0) g/dL Hct (42-52) % MCV (80-100) fL MCH (25-34) pg MCHC (32-36) g/dL RDW Std Deviation (36.4-46.3) fL RDW Coeff of [place] (11.5-14.5) % Plt Count (130-400) K/uL MPV (7.4-10.4) fL Immature Gran % (Auto) % Neut % (Auto) % Lymph % (Auto) % [place] % (Auto) % Eos % (Auto) % Baso % (Auto) % Neut # (Auto) (1.4-6.5) K/uL Lymph # (Auto) (1.2-3.4) K/uL [place] # (Auto) (0.11-0.59) K/uL Eos # (Auto) (0-0.5) K/uL Baso # (Auto) (0-0.2) K/uL Immature Gran # (Auto) (0.00-0.02) K/uL Sodium (136-145) mmol/L Potassium (3.5-5.1) mmol/L Chloride (98-107) mmol/L Carbon Dioxide (21-32) mmol/L Anion Gap (3-11) BUN (7-18) mg/dl Creatinine (0.6-1.4) mg/dl Est Cr Clr Drug Dosing ml/min Est GFR ( Amer) ml/min Est GFR (Non-Af Amer) ml/min BUN/Creatinine Ratio (10-20) Glucose (70-99) mg/dl Calcium (8.5-10.1) mg/dl Total Bilirubin (0.2-1) mg/dl AST (15-37) U/L ALT (12-78) Alkaline Phosphatase (45-117) U/L Total Protein (6.4-8.2) gm/dl Albumin (3.4-5.0) gm/dl Globulin (2.5-4.0) gm/dl Albumin/Globulin Ratio (0.9-2) TSH (0.300-4.500) uIu/ml Urine Color Urine Appearance (Clear) Urine pH (4.5-7.5) Ur Specific [place] (1.000-1.030) Urine Protein (Negative) Urine Glucose (UA) (Negative) Urine Ketones (Negative) Urine Blood (Negative) Urine Nitrite (Negative) Urine Bilirubin (Negative) Urine Urobilinogen (Negative) Ur Leukocyte Esterase (Negative) Urine WBC (Auto) (0-5) /hpf Urine RBC (Auto) (0-4) /hpf U Hyaline Cast (Auto) (0-5) /lpf U Epithel Cells (Auto) (0-5) /lpf Urine Bacteria (Auto) (Negative) Salicylates (2.8-20) mg/dl Urine Opiates Screen (Neg) Ur Methadone, Qual (Neg) Acetaminophen (10-30) ug/ml Urine Barbiturates (Neg) Ur Phencyclidine (PCP) (Neg) U Amphetamin/Meth Scrn (Neg) MDMA (Ecstasy) Screen (Neg) U Benzodiazepines Scrn (Neg) Ur Cocaine Metabolite (Neg) U Marijuana (THC) Screen (Neg) Ethyl Alcohol mg/dL < 3.0 (0-3) mg/dl SARS-CoV-2, RNA, NAAT (NEGATIVE) Discharge Plan Visit Data Chief Complaint: Mental Health Evaluation Stated Complaint: SUICIDE THOUGHTS,DEPRESSION ED Provider: Aneesh Boyd Discharge Problem: Depression Forms Stand Alone Forms: [facility], Suicide Prevention Resources Prescriptions Prescriptions: No Action propranolol 10 mg Tablet 10 mg PO BID PRN (Reason: anxiety) Qty: 30 RF: 0 escitalopram oxalate 10 mg Tablet 10 mg PO QAM Qty: 30 RF: 0 mirtazapine 15 mg Tablet 15 mg PO HS Qty: 30 RF: 0 quetiapine 25 mg Tablet 50 mg PO BID PRN (Reason: anxiety) Qty: 30 RF: 0 Referrals Referrals: PCP,NO [Primary Care Provider] - Discharge Problem: Depression Qualifiers: Depression Type: other depression Qualified Code(s): F32.89 - Other specified depressive episodes
[2021-09-25 02:59] LABS: Appearance Urine Clear (Clear); Bacteria Urine Automated Negative (Negative); Blood Urine Negative (Negative); Color Urine Dark Yellow; Glucose Urine UA Negative (Negative); Ketones Urine Trace (Negative); Leukocyte Esterase Urine Negative (Negative); Nitrite Urine Negative (Negative); Protein Urine Trace (Negative); RBC Urine Automated 0-4 /hpf (0-4); Specific Gravity Urine 1.026 (1.000-1.030); Urobilinogen Urine Negative (Negative); pH Urine 5.5 (4.5-7.5)
[2021-09-25 03:11] LABS: Bilirubin Urine 1+ (Negative)
[2021-09-25 03:35] LABS: Amphetamines+Metham, Urine Pos (Neg); Barbiturates, Urine Neg (Neg); Benzodiazepine, Urine Neg (Neg); Cocaine, Urine Neg (Neg); MDMA (Ecstacy), Urine Pos (Neg); Methadone, Urine Neg (Neg); Opiate, Urine Neg (Neg); Phencyclidine, Urine Neg (Neg)
[2021-09-25 03:43] LABS: Basophils # (auto) 0.05 K/uL (0-0.2); Basophils % (auto) 0.4 %; Eosinophils # (auto) 0.24 K/uL (0-0.5); Hematocrit (blood only) 46.9 % (42-52); Immature Granulocytes # (auto) 0.03 K/uL (0.00-0.02); Immature Granulocytes % (auto) 0.3 %; Lymphocytes # (auto) 3.47 K/uL (1.2-3.4); Lymphocytes % (auto) 29.4 %; Mean Corpuscular Hemoglobin 30.7 pg (25-34); Mean Corpuscular Hgb Conc 34.1 g/dL (32-36); Mean Corpuscular Volume 89.8 fL (80-100); Mean Platelet Volume 9.1 fL (7.4-10.4); Monocytes # (auto) 1.01 K/uL (0.11-0.59); Monocytes % (auto) 8.5 %; Neutrophils # (auto) 7.02 K/uL (1.4-6.5); Neutrophils % (auto) 59.4 %; Platelet Count 317 K/uL (130-400); RDW Coefficient of Variation 13.4 % (11.5-14.5); RDW Standard Deviation 44.3 fL (36.4-46.3); Red Blood Count 5.22 M/uL (4.7-6.1); White Blood Count 11.82 K/uL (4.8-10.8)
[2021-09-25 04:01] LABS: Albumin Level 4.1 gm/dl (3.4-5.0); BUN Creatinine Ratio 10.5 (10-20); Calcium 9.3 mg/dl (8.5-10.1); Creatinine Clr Calc Pharmacy 125.8 ml/min; Est GFR (African American) 112.2 ml/min; Est GFR (Non-African American) 96.8 ml/min; Potassium 3.7 mmol/L (3.5-5.1)
[2021-09-25 04:12] LABS: Albumin Globulin Ratio 1.1 (0.9-2); Bilirubin,Total 0.8 mg/dl (0.2-1); Globulin 3.6 gm/dl (2.5-4.0); Thyroid Stimulating Hormone 1.04 uIu/ml (0.300-4.500); Total Protein 7.7 gm/dl (6.4-8.2)
[2021-09-25 04:14] LABS: Acetaminophen < 2 ug/ml (10-30); Salicylate 2.8 mg/dl (2.8-20)
[2021-09-25 04:46] VITALS: O2SAT 98
[2021-09-25] MEDS ORDERED: MAGNESIUM HYDROXIDE SUSP 30 ML UDC PO PRN (05:17)
[2021-09-25] MEDS ORDERED: ACETAMINOPHEN 325 MG TAB PO PRN (05:17)
[2021-09-25] MEDS ORDERED: ALUMINUM/MAGNESIUM SUSP 30 ML UDC PO PRN (05:17)
[2021-09-25] MEDS ORDERED: hydrOXYzine HCl 25 MG TAB PO PRN ×2 (05:17)
[2021-09-25] MEDS ORDERED: BISMUTH SUBSALICYLATE LIQD 236 ML PO PRN (05:17)
[2021-09-25] MEDS ORDERED: SODIUM CHLORIDE 0.65% NA SOLN 45 ML (OCEAN) PRN (05:17)
[2021-09-25] MEDS ORDERED: Flu Vaccine (Fluarix) 0.5mL SYR (Standard Dose) IM ONE (07:30)
[2021-09-25] MEDS ORDERED: QUEtiapine FUMARATE 25 MG TABLET PO PRN (08:04)
[2021-09-25] MEDS ORDERED: PROPRANOLOL HCL 10 MG TAB PO PRN (08:04)
[2021-09-25] MEDS ORDERED: ESCITALOPRAM OXALATE 10 MG TAB PO SCH (09:00)
[2021-09-25] MEDS ORDERED: NICOTINE POLACRILEX 2 MG GUM MT PRN (10:08)
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
[2021-09-25] MEDS: MIRTAZAPINE TAB 15 MG TAB PO SCH (21:06)
[2021-09-26] MEDS: ESCITALOPRAM OXALATE 20 MG TAB PO SCH (09:03)
[2021-09-26] MEDS: NICOTINE 21 MG/24 HR TDSY TD SCH (09:04)
--- NOTE | 2021-09-26 12:50 | Psychiatric Progress Note ---
Date of Service September 26, 2021 Impression / Recommendations Impression Nargis is a 31 yo male with a history of recurrent depression and self- medication with substances, primarily meth most recently as denies ongoing EToh use for 5 years. He has struggled with treatment compliance following discharge and quickly decompensates to suicidal ideation when alone/feeling rejected. He is triggered by his girlfriend who also struggles with homelessness and mental health/substance abuse issues. 09/26/20: avoidant of therapy and rehab (1) Major depressive disorder, recurrent, unspecified: (2) Methamphetamine use disorder, moderate: 09/26/20: continue current meds and treatment plan, encourage group participation. 09/25/20: The patient was admitted to the [facility] ([facility] mental health unit) on q15 min checks (behavioral with suicide precautions) for safety. The patient will participate in group, recreational, and milieu therapies and will be offered additional individual and family sessions as clinically appropriate. The patient recently used meth. Brief intervention was offered and accepted. Intervention was greater than 5 min in length and included assessing readiness to quit, advice on how to reduce or abstain, and to set a specific goal for this hospitalization. plant and equipment worker will also assist in anticipating barriers to sobriety and in problem-solving for solutions to those problems while arranging for referral to appropriate treatment as he will likely require [facility] funding. Risks/benefits/treatments re-reviewed re: his current medications. He agrees to increase Lexapro to 20 mg daily. Inventory Assets Strengths: housing program, desire to work Needs: dual dx therapy, med compliance Risk Factors Assessment Male: Yes : Yes Do You Have Access To A Gun?: No Mental Health Diagnoses: Yes Substance Use Disorders: Yes Previous Psychiatric Hospitalization: Yes Protective Factors Assessment : No Employed: Yes Stable Relationships: No Supportive Family: No Interval History Identifying Information NARGIS CACERES is a 31-year-old M who currently lives in a hotel (transitional housing), was just discharged from our unit on 08/26/21, and was re-admitted on 09/25/21 05:17 on a 201 commitment for suicidal ideation. Chief Complaint "yeah, I'm thinking". Review of Systems Sleep Information Total Hours of Sleep: 9.5 Sleep Comments: pt appeared to sleep 2.5 hrs during evening shift. pt on q-15 minute checks Meal Information Percent Meal Consumed - Breakfast: 100 Percent Meal Consumed - Lunch: 100 Percent Meal Consumed - Dinner: 100 Subjective Subjective Patient was seen & assessed and interval progress reviewed with nursing and social work. Has not been attending much in the way of programming. Started increase in Lexapro. Focussed on his girlfriend. Physical Exam Psychiatric Orientation: alert and oriented x 3 Apperance: appropriately dressed and appropriately groomed Eye Contact: good eye contact Motor Behavior: no abnormal motor movements Speech: normal rate/rhythm/volume of speech Affect: + depressed affect Mood: + depressed mood Thought Process: goal directed thought process Thought Content: reality based without delusions Suicidal Thoughts: denies suicidal thoughts Homicidal Thoughts: denies homicidal thoughts Hallucinations: no auditory hallucinations and no visual hallucinations Cognition: attention grossly intact and language grossly intact Estimated Intelligence: consistent with education level Insight: + limited insight Judgement: + limited judgement Vital Signs (Past 24 Hours) Last Vital Signs Temp 36.4 C L 09/26/21 06:48 Pulse 76 09/26/21 06:49 Resp 16 09/26/21 06:48 BP 113/72 09/26/21 06:49 Pulse Ox 98 09/25/21 05:29 Results & Data ([facility]) Current Inpatient Medications Current Inpatient Medications: Current Inpatient Medications Acetaminophen (Acetaminophen 325 Mg Tab) 650 mg PO Q4H PRN PRN Reason: Headache or Minor Fever Stop: 10/25/21 05:16 Al Hydrox/Mg Hydrox/Simethicone (Aluminum/Magnesium Susp 30 Ml Udc) 30 ml PO Q4H PRN PRN Reason: GI Upset Stop: 10/25/21 05:16 Bismuth Subsalicylate (Bismuth Subsalicylate Liqd 236 Ml) 15 ml PO PRN PRN PRN Reason: Loose Stool Stop: 10/25/21 05:16 Escitalopram Oxalate (Escitalopram Oxalate 20 Mg Tab) 20 mg PO QAM HENRY Stop: 10/26/21 08:59 Last Admin: 09/26/21 09:03 Dose: 20 mg Documented by: Hydroxyzine HCl (Hydroxyzine Hcl 25 Mg Tab) 50 mg PO HSZ PRN PRN Reason: Insomnia Stop: 10/25/21 05:16 Hydroxyzine HCl (Hydroxyzine Hcl 25 Mg Tab) 25 mg PO Q4H PRN PRN Reason: Anxiety Stop: 10/25/21 05:16 Magnesium Hydroxide (Magnesium Hydroxide Susp 30 Ml Udc) 30 ml PO DAILY PRN PRN Reason: Constipation Stop: 10/25/21 05:16 Mirtazapine (Mirtazapine Tab 15 Mg Tab) 15 mg PO HS [facility] Stop: 10/25/21 21:59 Last Admin: 09/25/21 21:06 Dose: 15 mg Documented by: Miscellaneous (Remove Nicoderm Patch) 1 ea N/A DAILY@[id number] [facility] Stop: 10/26/21 08:58 Last Admin: 09/26/21 09:04 Dose: Not Given Documented by: Nicotine (Nicotine 21 Mg/24 Hr Tdsy) 21 mg TD QAM [facility] Stop: 10/26/21 08:59 Last Admin: 09/26/21 09:04 Dose: 21 mg Documented by: Nicotine Polacrilex (Nicotine Polacrilex 2 Mg Gum) 1 piece MT PRN PRN PRN Reason: nicotine withdrawal Stop: 10/25/21 10:07 Last Admin: 09/25/21 10:48 Dose: 1 piece Documented by: Propranolol HCl (Propranolol Hcl 10 Mg Tab) 10 mg PO BID PRN PRN Reason: anxiety Stop: 10/25/21 08:03 Quetiapine Fumarate (Quetiapine Fumarate 25 Mg Tablet) 50 mg PO BID PRN PRN Reason: anxiety Stop: 10/25/21 08:03 Sodium Chloride (Sodium Chloride 0.65% Na Soln 45 Ml (Rowan)) 1 - 2 sprays NA PRN PRN PRN Reason: Nasal Dryness/Congestion Stop: 10/25/21 05:16 Mental Health & Subst Abuse Tx Psychiatrist Name of Psychiatrist: Gigi Psychiatrist's Psychiatric Appointment Comment: Follow up with them for a psychiatry referral Therapist Name of Therapist: Gigi Matthews Therapist's Date of Therapist Appointment: 10/01/20 Time of Therapist Appointment: 5:00 p.m. (Group at 1 p.m. this date) Therapy Appointment Comment: [address] [facility], [address], [place] Golf Manager Name of Golf Manager: JAZZMINE Mckenna Phone Number for Golf Manager: [phone] Post Discharge Appointments Primary Care Physician Name Of Family Doctor: [facility] -will be seeing [place] Primary Care Date of Appointment with PCP: 10/03/21 Time of Appointment with PCP: 2 p.m Provider Appointment Comment: [address], [place], [place] Contact Information Discharge Discharge Address: [facility], [facility] [address] , [place] [address] Contact Information Comment: [facility]
[2021-09-26] MEDS: MIRTAZAPINE TAB 15 MG TAB PO SCH (21:13)
[2021-09-27 06:59] VITALS: TEMP 97.5
[2021-09-27] MEDS: ESCITALOPRAM OXALATE 20 MG TAB PO SCH (08:38)
[2021-09-27] MEDS: NICOTINE 21 MG/24 HR TDSY TD SCH (08:38)
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
[2021-09-27 10:04] VITALS: BP 113/72; PULSE 108
[2021-09-29 13:50] LABS: Amphetamine Urine, Confirm 5860 ng/mL (<250); MDA negative; MDEA negative; MDMA (Ecstasy) Urine, Confirm negative; Methamphetamine, Ur Confirm >15000 ng/mL (<250)
== END 2021-09-27 11:20 | disposition home or self-care (01) | DRG 885 ==
LOC: ED 02:23 → 3S 04:48
DX: Z59.89 Other problems related to housing and economic circumstances; F15.10 Other stimulant abuse, uncomplicated; F33.9 Major depressive disorder, recurrent, unspecified; F10.11 Alcohol abuse, in remission; R45.851 Suicidal ideations; Z60.2 Problems related to living alone; F17.210 Nicotine dependence, cigarettes, uncomplicated